=== PATIENT | female | born 1955 | race Caucasian/White ===

== ENCOUNTER 2024-12-03 11:18 | Outpatient (CLI) | payer MEDICARE, SELFPAY | END 2024-12-03 11:19 | disposition home or self-care (01) | LOC: MICIMG 11:22 | PROVIDERS: PCP Internal Medicine; Visit Provider Internal Medicine | DX: M25.572 Pain in left ankle and joints of left foot (principal) | CPT/HCPCS: 73610 ==

== ENCOUNTER 2025-02-10 | Day surgery (SDC) | payer MEDICARE, SELFPAY ==
[2025-01-28 14:59] VITALS: BMI 28.0
--- OUTSIDE RECORDS SUMMARY | 2025-02-10 00:02 | XMS_ITS | Data Portability ---
Author Organization [place] [facility], Main Office Address [address] [place] [address] Assessment Encounter Date Assessment Date Assessment LastModified by Organization Details LastModified Time 04/03/2023 04/03/2023 Continue current therapy blood work ordered follow-up in 4 months [email or web address] Not available 04/15/2023 17:15:37 10/09/2023 10/09/2023 Will continue current therapy stay up-to-date on immunizations especially with regards to COVID RSV and flu. Blood work ordered follow-up with me in 6 months Not available 10/09/2023 13:58:39 Plan of Treatment Reminders Order Date Submit Date Provider Last Modified By Organization Details Last Modified Time Details Appointments Follow Up 15 2024 10:30A Singh Tan DPM Not available Not available Not available Lab CMP, serum or plasma 2023 024 [facility] (Lab), [address] [place], [address], 10/09/2023 16:59:46 lipid panel, serum 2023 024 [facility] (Lab), [address] [place], [address], 10/09/2023 16:59:50 CBC w/ auto diff 2023 024 [facility] (Lab), [address] [place], [address], 10/09/2023 16:13:42 glycohemo globin, total, blood 2023 024 [facility] (Lab), [address] [place], [address], 10/09/2023 20:22:25 Referral None recorded. Procedures None recorded. Surgeries None recorded. Imaging None recorded. Medication Orders amlodipin e 5 mg tablet 2023 024 [id number] [facility], [address], [address], [id number], 10/09/2023 13:10:59 atorvasta tin 10 mg tablet 2023 024 [facility], [facility] [address], [facility] [address], [place], [id number], 10/09/2023 13:10:59 glimepiri de 2 mg tablet 2023 024 [place] [id number] [facility], [address], [facility] [address], [place], [id number], 10/09/2023 13:10:59 Patient TargetsNo targets recorded. Patient InstructionsNo instructions recorded. Reason for Referral None Reported. Results Created Date Observation Date Name Description Value Unit Range Abnormal Flag Note LastModifiedBy Organization Detail LastModifiedTime 10/04/1910/04/2022 LIPID PANEL cholesterol 200 mg/dL 140-19 9 high [facility] SID[facility]AR[facility] NSUS RECOM MENDA TION FOR RODOLFO STERO L: ADULT CHILD LOW RISK: <200 <170 BORDE RLINE : <200- 239 ----- HIGH RISK: >240 >200 Not Available [facility] (Lab) [address] [place], [address], 10/04/2022 15:43:26 10/04/1910/04/2022 LIPID PANEL triglyceride s 173 mg/dL 0-150 high NIH SID[facility]AR[facility] NSUS REPOR T RECOM MENDA TION FOR TRIGL YCERI BRISEIDA: ADULT CHILD LOW RISK: <150 ----- BODER LINE: 150-1 99 ----- HIGH RISK: >200 ----- Not Available [facility] (Lab) [address] [place], [address], 10/04/2022 15:43:26 10/04/19 23 10/04/2022 LIPID PANEL HDL cholesterol 42 mg/dL 40- Not Available [facility] (Lab) [address] [place], [address], 10/04/2022 15:43:26 10/04/19 23 10/04/2022 LIPID PANEL LDL cholesterol, calculated 123 mg/dL 0-130 NIH S[facility] NSUS REPOR T RECOM MENDA TIONS FOR LDL: ADULT CHILD LOW RISK <130 <110 (OPTI MAL LDL) <100 ----- LUCILADE RLINE : 130-1 59 ----- HIGH RISK: >160 >130 A TRIGL YCERI DE RESUL T >400 INVAL IDATE S THE CALCU LATIO N FOR LDL FRACT IONAT ION - THE LDL RESUL T WILL NOT BE REPOR LOLA. Not Available [facility] (Lab) [address] [place], [address], 10/04/2022 15:43:26 10/04/1910/04/2022 COMPR EHENS YOVANY METAB OLIC PANEL sodium 140 mmol/ L 137-14 5 Not Available [facility] (Lab) [address] [place], [address], 10/04/2022 15:43:22 10/04/19 23 10/04/2022 COMPR EHENS YOVANY METAB OLIC PANEL potassium 4.2 mmol/ L 3.5-5. 1 Not Available [facility] (Lab) [address] [place], [address], 10/04/2022 15:43:22 10/04/19 23 10/04/2022 COMPR EHENS YOVANY METAB OLIC PANEL chloride 102 mmol/ L 98-107 Not Available [facility] (Lab) [address] [place], [address], 10/04/2022 15:43:22 10/04/19 23 10/04/2022 COMPR EHENS YOVANY METAB OLIC PANEL carbon dioxide 26 mmol/ L 22-30 Not Available [facility] (Lab) [address] [place], [address], 10/04/2022 15:43:22 10/04/19 23 10/04/2022 COMPR EHENS YOVANY METAB OLIC PANEL anion gap 16.2 mmol/ L 14-22 Not Available [facility] (Lab) [address] [place], [address], 10/04/2022 15:43:22 10/04/19 23 10/04/2022 COMPR EHENS YOVANY METAB OLIC PANEL glucose 90 mg/dL 70-99 Not Available [facility] (Lab) [address] [place], [address], 10/04/2022 15:43:22 10/04/19 23 10/04/2022 COMPR EHENS YOVANY METAB OLIC PANEL BUN 13 mg/dL 8-19 Not Available [facility] (Lab) [address] [place], [address], 10/04/2022 15:43:22 10/04/19 23 10/04/2022 COMPR EHENS YOVANY METAB OLIC PANEL creatinine 0.89 mg/dL 0.66-1 .25 Not Available [facility] (Lab) [address] [place], [address], 10/04/2022 15:43:22 10/04/19 23 10/04/2022 COMPR EHENS YOVANY METAB OLIC PANEL GFR >60 Refer ence Range : [place] ge GFR Healt hy Adult : >60 mL/mi n/1.7 3 m2 Chron ic Kidne y Disea se: 15-60 mL/mi n/1.7 3 m2 Kidne y Failu re: <15/m L/min /1.73 m2 www.n iddk. nih.g ov The MDRD study equat ion has not been valid ated in child wai <18 years of age; pregn ant women ; the elder ly >85 years of age; or in some racia l or ethni c subgr oups, such as [facility] nics. Outsi de the valid ated rafiq eters , estim ated GFR is less accur ate, requi ring clini rogelio judgm ent on a case- by-ca se basis . Clini rogelio inter preta tion for other races and ages must be made by the clini calixto. The MDRD study equat ion has not been valid ated for the evalu ation of serum creat inine relat ed to nutri rajesh l statu s or medic ation usage . For perso ns <18 years of age, a pedia tric GFR calcu lator is avail able on the [facility] websi te: https :[email or web address] [email or web address] rg/pr ofess ional s/kdo qi/gf r_cal culat or Not Available [facility] (Lab) [address] [place], [address], 10/04/2022 15:43:22 10/04/19 23 10/04/2022 COMPR EHENS YOVANY METAB OLIC PANEL alkaline phosphatase 85 U/L 38-126 Not Available [facility] (Lab) [address] [place], [address], 10/04/2022 15:43:22 10/04/19 23 10/04/2022 COMPR EHENS YOVANY METAB OLIC PANEL alanine aminotransfe rase 30 U/L 0-35 Not Available [facility] (Lab) [address] [place], [address], 10/04/2022 15:43:22 10/04/19 23 10/04/2022 COMPR EHENS YOVANY METAB OLIC PANEL aspartate aminotransfe rase 28 U/L 15-37 Not Available [facility] (Lab) [address] [place], [address], 10/04/2022 15:43:22 10/04/19 23 10/04/2022 COMPR EHENS YOVANY METAB OLIC PANEL bilirubin, total 0.90 mg/dL 0.20-1 .30 Not Available [facility] (Lab) [address] [place], [address], 10/04/2022 15:43:22 10/04/19 23 10/04/2022 COMPR EHENS YOVANY METAB OLIC PANEL calcium 9.3 mg/dL 8.4-10 .2 Not Available [facility] (Lab) [address] [place], [address], 10/04/2022 15:43:22 10/04/19 23 10/04/2022 COMPR EHENS YOVANY METAB OLIC PANEL total protein 7.7 g/dL 6.3-8. 2 Not Available [facility] (Lab) [address] [place], [address], 10/04/2022 15:43:22 10/04/19 23 10/04/2022 COMPR EHENS YOVANY METAB OLIC PANEL albumin 4.6 g/dL 3.0-4. 4 high Not Available [facility] (Lab) [address] [place], [address], 10/04/2022 15:43:22 10/04/19 23 10/04/2022 COMPR EHENS YOVANY METAB OLIC PANEL globulin 3.1 g/dL 2.6-4. 2 Not Available [facility] (Lab) [address] [place], [address], 10/04/2022 15:43:22 10/04/19 23 10/04/2022 COMPR EHENS YOVANY METAB OLIC PANEL A/G ratio 1.5 ratio 1.0-2. 0 Not Available [facility] (Lab) [address] [place], [address], 10/04/2022 15:43:22 10/04/19 23 10/04/2022 CBC/C OMPLE TE BLD COUNT W/DIF F white blood cells 9.1 x10'3 /uL 4.2-10 .8 Not Available [facility] (Lab) [address] [place], [address], 10/04/2022 14:51:34 10/04/19 23 10/04/2022 CBC/C OMPLE TE BLD COUNT W/DIF F red blood cells 4.81 x10'6 /uL 3.80-5 .20 Not Available [facility] (Lab) [address] [place], [address], 10/04/2022 14:51:34 10/04/1910/04/2022 CBC/C OMPLE TE BLD COUNT W/DIF F hemoglobin 14.0 g/dL 12.0-1 5.6 Not Available [facility] (Lab) [address] [place], [address], 10/04/2022 14:51:34 10/04/1910/04/2022 CBC/C OMPLE TE BLD COUNT W/DIF F hematocrit 42.9 % 35.7-4 5.7 Not Available [facility] (Lab) [address] [place], [address], 10/04/2022 14:51:34 10/04/1910/04/2022 CBC/C OMPLE TE BLD COUNT W/DIF F mean red cell volume 89.2 fL 82.0-9 9.0 Not Available [facility] (Lab) [address] [place], [address], 10/04/2022 14:51:34 10/04/1910/04/2022 CBC/C OMPLE TE BLD COUNT W/DIF F mean red cell hemoglobin 29.1 pg 27.0-3 3.0 Not Available [facility] (Lab) [address] [place], [address], 10/04/2022 14:51:34 01/03/20 23 10/04/2022 CBC/C OMPLE TE BLD COUNT W/DIF F mean RBC HGB concentratio n 32.6 g/dL 31.0-3 6.0 Not Available [facility] (Lab) [address] [place], [address], 10/04/2022 14:51:34 10/04/19 23 10/04/2022 CBC/C OMPLE TE BLD COUNT W/DIF F red cell distribution width 12.6 % 11.8-1 5.5 Not Available [facility] (Lab) [address] [place], [address], 10/04/2022 14:51:34 10/04/19 23 10/04/2022 CBC/C OMPLE TE BLD COUNT W/DIF F platelets 378 x10'3 /uL 150-40 0 Not Available [facility] (Lab) [address] [place], [address], 10/04/2022 14:51:34 10/04/19 23 10/04/2022 CBC/C OMPLE TE BLD COUNT W/DIF F mean platelet volume 8.7 fL 9.0-12 .4 low Not Available [facility] (Lab) [address] [place], [address], 10/04/2022 14:51:34 10/04/1910/04/2022 CBC/C OMPLE TE BLD COUNT W/DIF F neutrophils 74.0 % 39.0-7 2.0 high Not Available [facility] (Lab) [address] [place], [address], 10/04/2022 14:51:34 10/04/19 23 10/04/2022 CBC/C OMPLE TE BLD COUNT W/DIF F lymphocytes 18.1 % 16.0-4 7.0 Not Available [facility] (Lab) [address] [place], [address], 10/04/2022 14:51:34 10/04/19 23 10/04/2022 CBC/C OMPLE TE BLD COUNT W/DIF F monocytes 5.0 % 5.0-12 .0 Not Available [facility] (Lab) [address] [place], [address], 10/04/2022 14:51:34 10/04/19 23 10/04/2022 CBC/C OMPLE TE BLD COUNT W/DIF F eosinophils 2.2 % 1.0-7. 0 Not Available [facility] (Lab) [address] [place], [address], 10/04/2022 14:51:34 10/04/19 23 10/04/2022 CBC/C OMPLE TE BLD COUNT W/DIF F basophils 0.4 % 0.0-2. 0 Not Available [facility] (Lab) [address] [place], [address], 10/04/2022 14:51:34 10/04/19 23 10/04/2022 CBC/C OMPLE TE BLD COUNT W/DIF F immature granulocytes 0.3 % 0.00-0 .50 Not Available [facility] (Lab) [address] [place], [address], 10/04/2022 14:51:34 10/04/19 23 10/04/2022 CBC/C OMPLE TE BLD COUNT W/DIF F neutrophils, absolute count 6.72 x10'3 /uL 1.5-8. 0 Not Available [facility] (Lab) [address] [place], [address], 10/04/2022 14:51:34 10/04/19 23 10/04/2022 CBC/C OMPLE TE BLD COUNT W/DIF F lymphocytes, absolute count 1.64 x10'3 /uL 1.07-3 .43 Not Available [facility] (Lab) [address] [place], [address], 10/04/2022 14:51:34 10/04/19 23 10/04/2022 CBC/C OMPLE TE BLD COUNT W/DIF F monocytes, absolute count 0.45 x10'3 /uL 0.29-0 .99 Not Available [facility] (Lab) [address] [place], [address], 10/04/2022 14:51:34 10/04/19 23 10/04/2022 CBC/C OMPLE TE BLD COUNT W/DIF F eosinophils, absolute count 0.20 x10'3 /uL 0.02-0 .53 Not Available [facility] (Lab) [address] [place], [address], 10/04/2022 14:51:34 10/04/19 23 10/04/2022 CBC/C OMPLE TE BLD COUNT W/DIF F basophils, absolute count 0.04 x10'3 /uL 0.01-0 .08 Not Available [facility] (Lab) [address] [place], [address], 10/04/2022 14:51:34 10/04/19 23 10/04/2022 CBC/C OMPLE TE BLD COUNT W/DIF F immature granulocytes ,absolute 0.03 x10'3 /uL 0.00-0 .05 Not Available [facility] (Lab) [address] [place], [address], 10/04/2022 14:51:34 10/04/19 23 10/04/2022 CBC/C OMPLE TE BLD COUNT W/DIF F nucleated red blood cells 0.0 % -0 Not Available [facility] (Lab) [address] [place], [address], 10/04/2022 14:51:34 10/04/19 23 10/04/2022 CBC/C OMPLE TE BLD COUNT W/DIF F NRBC# 0.00 x10'3 /uL Not Available [facility] (Lab) [address] [place], [address], 10/04/2022 14:51:34 04/03/20 23 04/03/2023 CBC/C OMPLE TE BLD COUNT W/DIF F white blood cells 5.1 x10'3 /uL 4.2-10 .8 Not Available [facility] (Lab) [address] [place], [address], 04/03/2023 13:47:51 04/03/20 23 04/03/2023 CBC/C OMPLE TE BLD COUNT W/DIF F red blood cells 4.81 x10'6 /uL 3.80-5 .20 Not Available [facility] (Lab) [address] [place], [address], 04/03/2023 13:47:51 04/03/20 23 04/03/2023 CBC/C OMPLE TE BLD COUNT W/DIF F hemoglobin 13.7 g/dL 12.0-1 5.6 Not Available [facility] (Lab) [address] [place], [address], 04/03/2023 13:47:51 04/03/20 23 04/03/2023 CBC/C OMPLE TE BLD COUNT W/DIF F hematocrit 42.7 % 35.7-4 5.7 Not Available [facility] (Lab) [address] [place], [address], 04/03/2023 13:47:51 04/03/20 23 04/03/2023 CBC/C OMPLE TE BLD COUNT W/DIF F mean red cell volume 88.8 fL 82.0-9 9.0 Not Available [facility] (Lab) [address] [place], [address], 04/03/2023 13:47:51 04/03/20 23 04/03/2023 CBC/C OMPLE TE BLD COUNT W/DIF F mean red cell hemoglobin 28.5 pg 27.0-3 3.0 Not Available [facility] (Lab) [address] [place], [address], 04/03/2023 13:47:51 04/03/20 23 04/03/2023 CBC/C OMPLE TE BLD COUNT W/DIF F mean RBC HGB concentratio n 32.1 g/dL 31.0-3 6.0 Not Available [facility] (Lab) [address] [place], [address], 04/03/2023 13:47:51 04/03/20 23 04/03/2023 CBC/C OMPLE TE BLD COUNT W/DIF F red cell distribution width 12.9 % 11.8-1 5.5 Not Available [facility] (Lab) [address] [place], [address], 04/03/2023 13:47:51 04/03/20 23 04/03/2023 CBC/C OMPLE TE BLD COUNT W/DIF F platelets 317 x10'3 /uL 150-40 0 Not Available [facility] (Lab) [address] [place], [address], 04/03/2023 13:47:51 04/03/20 23 04/03/2023 CBC/C OMPLE TE BLD COUNT W/DIF F mean platelet volume 9.1 fL 9.0-12 .4 Not Available [facility] (Lab) [address] [place], [address], 04/03/2023 13:47:51 04/03/20 23 04/03/2023 CBC/C OMPLE TE BLD COUNT W/DIF F neutrophils 47.7 % 39.0-7 2.0 Not Available [facility] (Lab) [address] [place], [address], 04/03/2023 13:47:51 0704/03/2023 CBC/C OMPLE TE BLD COUNT W/DIF F lymphocytes 39.0 % 16.0-4 7.0 Not Available [facility] (Lab) [address] [place], [address], 04/03/2023 13:47:51 04/03/20 23 04/03/2023 CBC/C OMPLE TE BLD COUNT W/DIF F monocytes 7.9 % 5.0-12 .0 Not Available [facility] (Lab) [address] [place], [address], 04/03/2023 13:47:51 04/03/2004/03/2023 CBC/C OMPLE TE BLD COUNT W/DIF F eosinophils 4.2 % 1.0-7. 0 Not Available [facility] (Lab) [address] [place], [address], 04/03/2023 13:47:51 04/03/2004/03/2023 CBC/C OMPLE TE BLD COUNT W/DIF F basophils 1.0 % 0.0-2. 0 Not Available [facility] (Lab) [address] [place], [address], 04/03/2023 13:47:51 04/03/2004/03/2023 CBC/C OMPLE TE BLD COUNT W/DIF F immature granulocytes 0.2 % 0.00-0 .50 Not Available [facility] (Lab) [address] [place], [address], 04/03/2023 13:47:51 04/03/2004/03/2023 CBC/C OMPLE TE BLD COUNT W/DIF F neutrophils, absolute count 2.41 x10'3 /uL 1.5-8. 0 Not Available [facility] (Lab) [address] [place], [address], 04/03/2023 13:47:51 04/03/20 23 04/03/2023 CBC/C OMPLE TE BLD COUNT W/DIF F lymphocytes, absolute count 1.97 x10'3 /uL 1.07-3 .43 Not Available [facility] (Lab) [address] [place], [address], 04/03/2023 13:47:51 04/03/20 23 04/03/2023 CBC/C OMPLE TE BLD COUNT W/DIF F monocytes, absolute count 0.40 x10'3 /uL 0.29-0 .99 Not Available [facility] (Lab) [address] [place], [address], 04/03/2023 13:47:51 04/03/20 23 04/03/2023 CBC/C OMPLE TE BLD COUNT W/DIF F eosinophils, absolute count 0.21 x10'3 /uL 0.02-0 .53 Not Available [facility] (Lab) [address] [place], [address], 04/03/2023 13:47:51 04/03/20 23 04/03/2023 CBC/C OMPLE TE BLD COUNT W/DIF F basophils, absolute count 0.05 x10'3 /uL 0.01-0 .08 Not Available [facility] (Lab) [address] [place], [address], 04/03/2023 13:47:51 04/03/2004/03/2023 CBC/C OMPLE TE BLD COUNT W/DIF F immature granulocytes ,absolute 0.01 x10'3 /uL 0.00-0 .05 Not Available [facility] (Lab) [address] [place], [address], 04/03/2023 13:47:51 04/03/20 23 04/03/2023 CBC/C OMPLE TE BLD COUNT W/DIF F nucleated red blood cells 0.0 % -0 Not Available [facility] (Lab) [address] [place], [address], 04/03/2023 13:47:51 04/03/20 23 04/03/2023 CBC/C OMPLE TE BLD COUNT W/DIF F NRBC# 0.00 x10'3 /uL Not Available [facility] (Lab) [address] [place], [address], 04/03/2023 13:47:51 04/03/20 23 04/03/2023 COMPR EHENS YOVANY METAB OLIC PANEL sodium 141 mmol/ L 137-14 5 Not Available [facility] (Lab) [address] [place], [address], 04/03/2023 14:48:38 04/03/20 23 04/03/2023 COMPR EHENS YOVANY METAB OLIC PANEL potassium 4.3 mmol/ L 3.5-5. 1 Not Available [facility] (Lab) [address] [place], [address], 04/03/2023 14:48:38 04/03/20 23 04/03/2023 COMPR EHENS YOVANY METAB OLIC PANEL chloride 104 mmol/ L 98-107 Not Available [facility] (Lab) [address] [place], [address], 04/03/2023 14:48:38 04/03/20 23 04/03/2023 COMPR EHENS YOVANY METAB OLIC PANEL carbon dioxide 28 mmol/ L 22-30 Not Available [facility] (Lab) [address] [place], [address], 04/03/2023 14:48:38 04/03/20 23 04/03/2023 COMPR EHENS YOVANY METAB OLIC PANEL anion gap 13.3 mmol/ L 14-22 low Not Available [facility] (Lab) [address] [place], [address], 04/03/2023 14:48:38 07/0304/03/2023 COMPR EHENS YOVANY METAB OLIC PANEL glucose 86 mg/dL 70-99 Not Available [facility] (Lab) [address] [place], [address], 04/03/2023 14:48:38 04/03/20 23 04/03/2023 COMPR EHENS YOVANY METAB OLIC PANEL BUN 12 mg/dL 8-19 Not Available [facility] (Lab) [address] [place], [address], 04/03/2023 14:48:38 04/03/20 23 04/03/2023 COMPR EHENS YOVANY METAB OLIC PANEL creatinine 0.92 mg/dL 0.66-1 .25 Not Available [facility] (Lab) [address] [place], [address], 04/03/2023 14:48:38 04/03/20 23 04/03/2023 COMPR EHENS YOVANY METAB OLIC PANEL GFR >60 Refer ence Range : [place] GFR Healt hy Adult : >60 mL/mi n/1.7 3 m2 Chron ic Kidne y Disea se: 15-60 mL/mi n/1.7 3 m2 Kidne y Failu re: <15/m L/min /1.73 m2 www.n iddk. nih.g ov The MDRD study equat ion has not been valid ated in child wai <18 years of age; pregn ant women ; the elder ly >85 years of age; or in some racia l or ethni c subgr oups, such as [facility] nics. Outsi de the valid ated rafiq eters , estim ated GFR is less accur ate, requi ring clini rogelio judgm ent on a case- by-ca se basis . Clini rogelio inter preta tion for other races and ages must be made by the clini calixto. The MDRD study equat ion has not been valid ated for the evalu ation of serum creat inine relat ed to nutri rajesh l statu s or medic ation usage . For perso ns <18 years of age, a pedia tric GFR calcu lator is avail able on the [facility] websi te: https :[email or web address] [email or web address] rg/pr ofess ional s/kdo qi/gf r_cal culat or Not Available [facility] (Lab) [address] [place], [address], 04/03/2023 14:48:38 04/03/20 23 04/03/2023 COMPR EHENS YOVANY METAB OLIC PANEL alkaline phosphatase 68 U/L 38-126 Not Available [facility] (Lab) [address] [place], [address], 04/03/2023 14:48:38 04/03/20 23 04/03/2023 COMPR EHENS YOVANY METAB OLIC PANEL alanine aminotransfe rase 24 U/L 0-35 Not Available [facility] (Lab) [address] [place], [address], 04/03/2023 14:48:38 04/03/20 23 04/03/2023 COMPR EHENS YOVANY METAB OLIC PANEL aspartate aminotransfe rase 28 U/L 15-37 Not Available [facility] (Lab) [address] [place], [address], 04/03/2023 14:48:38 04/03/20 23 04/03/2023 COMPR EHENS YOVANY METAB OLIC PANEL bilirubin, total 0.70 mg/dL 0.20-1 .30 Not Available [facility] (Lab) [address] [place], [address], 04/03/2023 14:48:38 04/03/20 23 04/03/2023 COMPR EHENS YOVANY METAB OLIC PANEL calcium 10.0 mg/dL 8.4-10 .2 Not Available [facility] (Lab) [address] [place], [address], 04/03/2023 14:48:38 04/03/20 23 04/03/2023 COMPR EHENS YOVANY METAB OLIC PANEL total protein 7.7 g/dL 6.3-8. 2 Not Available [facility] (Lab) [address] [place], [address], 04/03/2023 14:48:38 04/03/20 23 04/03/2023 COMPR EHENS YOVANY METAB OLIC PANEL albumin 4.4 g/dL 3.0-4. 4 Not Available [facility] (Lab) [address] [place], [address], 04/03/2023 14:48:38 04/03/20 23 04/03/2023 COMPR EHENS YOVANY METAB OLIC PANEL globulin 3.3 g/dL 2.6-4. 2 Not Available [facility] (Lab) [address] [place], [address], 04/03/2023 14:48:38 04/03/20 23 04/03/2023 COMPR EHENS YOVANY METAB OLIC PANEL A/G ratio 1.3 ratio 1.0-2. 0 Not Available [facility] (Lab) [address] [place], [address], 04/03/2023 14:48:38 04/03/20 23 04/03/2023 LIPID PANEL cholesterol 145 mg/dL 140-19 9 [facility] NSUS RECOM MENDA TION FOR RODOLFO STERO L: ADULT CHILD LOW RISK: <200 <170 BORDE RLINE : <200- 239 ----- HIGH RISK: >240 >200 Not Available [facility] (Lab) [address] [place], [address], 04/03/2023 14:48:42 04/03/2004/03/2023 LIPID PANEL triglyceride s 136 mg/dL 0-150 [facility] NSUS REPOR T RECOM MENDA TION FOR TRIGL YCERI BRISEIDA: ADULT CHILD LOW RISK: <150 ----- BODER LINE: 150-1 99 ----- HIGH RISK: >200 ----- Not Available [facility] (Lab) [address] [place], [address], 04/03/2023 14:48:42 04/03/2004/03/2023 LIPID PANEL HDL cholesterol 39 mg/dL 40- low Not Available [facility] (Lab) [address] [place], [address], 04/03/2023 14:48:42 04/03/2004/03/2023 LIPID PANEL LDL cholesterol, calculated 79 mg/dL 0-130 [facility] NSUS REPOR T RECOM MENDA TIONS FOR LDL: ADULT CHILD LOW RISK <130 <110 (OPTI MAL LDL) <100 ----- BORDE RLINE : 130-1 59 ----- HIGH RISK: >160 >130 A TRIGL YCERI DE RESUL T >400 INVAL IDATE S THE CALCU LATIO N FOR LDL FRACT IONAT ION - THE LDL RESUL T WILL NOT BE REPOR LOLA. Not Available [facility] (Lab) [address] [place], [address], 04/03/2023 14:48:42 04/03/2004/03/2023 HEMOG LOBIN A1C HA1C 5.6 % 4.0-6. 0 Diabe sebas Scree bishop Crite matt: <5.7% Consi stent with absen ce of diabe sebas 5.7-6 .4% Consi stent with incre ased risk for diabe sebas (pred iabet es) >OR=6 .5% Consi stent with diabe sebas REFER ENCE: Diabe sebas Care 2016, 39([place] ppl.1 ):s13 -s22 Not Available [facility] (Lab) [address] [place], [address], 04/03/2023 16:26:51 10/09/19 24 10/09/2023 CBC/C OMPLE TE BLD COUNT W/DIF F white blood cells 5.8 x10'3 /uL 4.2-10 .8 Not Available [facility] (Lab) [address] [place], [address], 10/09/2023 16:13:42 10/09/19 24 10/09/2023 CBC/C OMPLE TE BLD COUNT W/DIF F red blood cells 4.98 x10'6 /uL 3.80-5 .20 Not Available [facility] (Lab) [address] [place], [address], 10/09/2023 16:13:42 10/09/19 24 10/09/2023 CBC/C OMPLE TE BLD COUNT W/DIF F hemoglobin 14.6 g/dL 12.0-1 5.6 Not Available [facility] (Lab) [address] [place], [address], 10/09/2023 16:13:42 10/09/19 24 10/09/2023 CBC/C OMPLE TE BLD COUNT W/DIF F hematocrit 45.5 % 35.7-4 5.7 Not Available [facility] (Lab) [address] [place], [address], 10/09/2023 16:13:42 10/09/19 24 10/09/2023 CBC/C OMPLE TE BLD COUNT W/DIF F mean red cell volume 91.4 fL 82.0-9 9.0 Not Available [facility] (Lab) [address] [place], [address], 10/09/2023 16:13:42 10/09/19 24 10/09/2023 CBC/C OMPLE TE BLD COUNT W/DIF F mean red cell hemoglobin 29.3 pg 27.0-3 3.0 Not Available [facility] (Lab) [address] [place], [address], 10/09/2023 16:13:42 10/09/19 24 10/09/2023 CBC/C OMPLE TE BLD COUNT W/DIF F mean RBC HGB concentratio n 32.1 g/dL 31.0-3 6.0 Not Available [facility] (Lab) [address] [place], [address], 10/09/2023 16:13:42 10/09/19 24 10/09/2023 CBC/C OMPLE TE BLD COUNT W/DIF F red cell distribution width 12.7 % 11.8-1 5.5 Not Available [facility] (Lab) [address] [place], [address], 10/09/2023 16:13:42 10/09/19 24 10/09/2023 CBC/C OMPLE TE BLD COUNT W/DIF F platelets 332 x10'3 /uL 150-40 0 Not Available [facility] (Lab) [address] [place], [address], 10/09/2023 16:13:42 10/09/19 24 10/09/2023 CBC/C OMPLE TE BLD COUNT W/DIF F mean platelet volume 9.2 fL 9.0-12 .4 Not Available [facility] (Lab) [address] [place], [address], 10/09/2023 16:13:42 10/09/19 24 10/09/2023 CBC/C OMPLE TE BLD COUNT W/DIF F neutrophils 57.2 % 39.0-7 2.0 Not Available [facility] (Lab) [address] [place], [address], 10/09/2023 16:13:42 10/09/19 24 10/09/2023 CBC/C OMPLE TE BLD COUNT W/DIF F lymphocytes 30.6 % 16.0-4 7.0 Not Available [facility] (Lab) [address] [place], [address], 10/09/2023 16:13:42 10/09/19 24 10/09/2023 CBC/C OMPLE TE BLD COUNT W/DIF F monocytes 8.1 % 5.0-12 .0 Not Available [facility] (Lab) [address] [place], [address], 10/09/2023 16:13:42 10/09/19 24 10/09/2023 CBC/C OMPLE TE BLD COUNT W/DIF F eosinophils 2.9 % 1.0-7. 0 Not Available [facility] (Lab) [address] [place], [address], 10/09/2023 16:13:42 10/09/19 24 10/09/2023 CBC/C OMPLE TE BLD COUNT W/DIF F basophils 0.9 % 0.0-2. 0 Not Available [facility] (Lab) [address] [place], [address], 10/09/2023 16:13:42 10/09/19 24 10/09/2023 CBC/C OMPLE TE BLD COUNT W/DIF F immature granulocytes 0.3 % 0.00-0 .50 Not Available [facility] (Lab) [address] [place], [address], 10/09/2023 16:13:42 10/09/19 24 10/09/2023 CBC/C OMPLE TE BLD COUNT W/DIF F neutrophils, absolute count 3.30 x10'3 /uL 1.5-8. 0 Not Available [facility] (Lab) [address] [place], [address], 10/09/2023 16:13:42 10/09/19 24 10/09/2023 CBC/C OMPLE TE BLD COUNT W/DIF F lymphocytes, absolute count 1.77 x10'3 /uL 1.07-3 .43 Not Available [facility] (Lab) [address] [place], [address], 10/09/2023 16:13:42 10/09/19 24 10/09/2023 CBC/C OMPLE TE BLD COUNT W/DIF F monocytes, absolute count 0.47 x10'3 /uL 0.29-0 .99 Not Available [facility] (Lab) [address] [place], [address], 10/09/2023 16:13:42 10/09/19 24 10/09/2023 CBC/C OMPLE TE BLD COUNT W/DIF F eosinophils, absolute count 0.17 x10'3 /uL 0.02-0 .53 Not Available [facility] (Lab) [address] [place], [address], 10/09/2023 16:13:42 10/09/19 24 10/09/2023 CBC/C OMPLE TE BLD COUNT W/DIF F basophils, absolute count 0.05 x10'3 /uL 0.01-0 .08 Not Available [facility] (Lab) [address] [place], [address], 10/09/2023 16:13:42 10/09/19 24 10/09/2023 CBC/C OMPLE TE BLD COUNT W/DIF F immature granulocytes ,absolute 0.02 x10'3 /uL 0.00-0 .05 Not Available [facility] (Lab) [address] [place], [address], 10/09/2023 16:13:42 10/09/19 24 10/09/2023 CBC/C OMPLE TE BLD COUNT W/DIF F nucleated red blood cells 0.0 % -0 Not Available [facility] (Lab) [address] [place], [address], 10/09/2023 16:13:42 10/09/19 24 10/09/2023 CBC/C OMPLE TE BLD COUNT W/DIF F NRBC# 0.00 x10'3 /uL Not Available [facility] (Lab) [address] [place], [address], 10/09/2023 16:13:42 10/09/19 24 10/09/2023 COMPR EHENS YOVANY METAB OLIC PANEL sodium 141 mmol/ L 137-14 5 Not Available [facility] (Lab) [address] [place], [address], 10/09/2023 16:59:46 10/09/19 24 10/09/2023 COMPR EHENS YOVANY METAB OLIC PANEL potassium 4.3 mmol/ L 3.5-5. 1 Not Available [facility] (Lab) [address] [place], [address], 10/09/2023 16:59:46 10/09/19 24 10/09/2023 COMPR EHENS YOVANY METAB OLIC PANEL chloride 105 mmol/ L 98-107 Not Available [facility] (Lab) [address] [place], [address], 10/09/2023 16:59:46 10/09/19 24 10/09/2023 COMPR EHENS YOVANY METAB OLIC PANEL carbon dioxide 26 mmol/ L 22-30 Not Available [facility] (Lab) [address] [place], [address], 10/09/2023 16:59:46 10/09/19 24 10/09/2023 COMPR EHENS YOVANY METAB OLIC PANEL anion gap 14.3 mmol/ L 14-22 Not Available [facility] (Lab) [address] [place], [address], 10/09/2023 16:59:46 10/09/19 24 10/09/2023 COMPR EHENS YOVANY METAB OLIC PANEL glucose 77 mg/dL 70-99 Not Available [facility] (Lab) [address] [place], [address], 10/09/2023 16:59:46 10/09/19 24 10/09/2023 COMPR EHENS YOVANY METAB OLIC PANEL BUN 17 mg/dL 8-19 Not Available [facility] (Lab) [address] [place], [address], 10/09/2023 16:59:46 10/09/19 24 10/09/2023 COMPR EHENS YOVANY METAB OLIC PANEL creatinine 0.89 mg/dL 0.66-1 .25 Not Available [facility] (Lab) [address] [place], [address], 10/09/2023 16:59:46 10/09/19 24 10/09/2023 COMPR EHENS YOVANY METAB OLIC PANEL GFR >60 Refer ence Range : [place] ge GFR Healt hy Adult : >60 mL/mi n/1.7 3 m2 Chron ic Kidne y Disea se: 15-60 mL/mi n/1.7 3 m2 Kidne y Failu re: <15/m L/min /1.73 m2 www.n iddk. nih.g ov The MDRD study equat ion has not been valid ated in child wai <18 years of age; pregn ant women ; the elder ly >85 years of age; or in some racia l or ethni c subgr oups, such as [facility] nics. Outsi de the valid ated rafiq eters , estim ated GFR is less accur ate, requi ring clini rogelio judgm ent on a case- by-ca se basis . Clini rogelio inter preta tion for other races and ages must be made by the clini calixto. The MDRD study equat ion has not been valid ated for the evalu ation of serum creat inine relat ed to nutri rajesh l statu s or medic ation usage . For perso ns <18 years of age, a pedia tric GFR calcu lator is avail able on the F websi te: https ://kristie tai.radha talbot.o pedro/pr tonyess ional s/kdo qi/gf r_cal culat or Not Available [facility] (Lab) [address] [place], [address], 10/09/2023 16:59:46 10/09/19 24 10/09/2023 COMPR EHENS YOVANY METAB OLIC PANEL alkaline phosphatase 78 U/L 38-126 Not Available [facility] (Lab) [address] [place], [address], 10/09/2023 16:59:46 10/09/19 24 10/09/2023 COMPR EHENS YOVANY METAB OLIC PANEL alanine aminotransfe rase 26 U/L 0-35 Not Available [facility] (Lab) [address] [place], [address], 10/09/2023 16:59:46 10/09/19 24 10/09/2023 COMPR EHENS YOVANY METAB OLIC PANEL aspartate aminotransfe rase 31 U/L 15-37 Not Available [facility] (Lab) [address] [place], [address], 10/09/2023 16:59:46 10/09/19 24 10/09/2023 COMPR EHENS YOVANY METAB OLIC PANEL bilirubin, total 0.50 mg/dL 0.20-1 .30 Not Available [facility] (Lab) [address] [place], [address], 10/09/2023 16:59:46 10/09/19 24 10/09/2023 COMPR EHENS YOVANY METAB OLIC PANEL calcium 10.3 mg/dL 8.4-10 .2 high Not Available [facility] (Lab) [address] [place], [address], 10/09/2023 16:59:46 10/09/19 24 10/09/2023 COMPR EHENS YOVANY METAB OLIC PANEL total protein 7.8 g/dL 6.3-8. 2 Not Available [facility] (Lab) [address] [place], [address], 10/09/2023 16:59:46 10/09/19 24 10/09/2023 COMPR EHENS YOVANY METAB OLIC PANEL albumin 4.6 g/dL 3.0-4. 4 high Not Available [facility] (Lab) [address] [place], [address], 10/09/2023 16:59:46 10/09/19 24 10/09/2023 COMPR EHENS YOVANY METAB OLIC PANEL globulin 3.2 g/dL 2.6-4. 2 Not Available [facility] (Lab) [address] [place], [address], 10/09/2023 16:59:46 10/09/19 24 10/09/2023 COMPR EHENS YOVANY METAB OLIC PANEL A/G ratio 1.4 ratio 1.0-2. 0 Not Available [facility] (Lab) [address] [place], [address], 10/09/2023 16:59:46 10/09/19 24 10/09/2023 LIPID PANEL cholesterol 162 mg/dL 140-19 9 NIH SIDDHARTH NSUS RECOM MENDA TION FOR RODOLFO STERO L: ADULT CHILD LOW RISK: <200 <170 BORDE RLINE : <200- 239 ----- HIGH RISK: >240 >200 Not Available [facility] (Lab) [address] [place], [address], 10/09/2023 16:59:50 10/09/19 24 10/09/2023 LIPID PANEL triglyceride s 125 mg/dL 0-150 NIH SIDDHARTH NSUS REPOR T RECOM MENDA TION FOR TRIGL YCERI BRISEIDA: ADULT CHILD LOW RISK: <150 ----- BODER LINE: 150-1 99 ----- HIGH RISK: >200 ----- Not Available [facility] (Lab) [address] [place], [address], 10/09/2023 16:59:50 10/09/19 24 10/09/2023 LIPID PANEL HDL cholesterol 41 mg/dL 40- Not Available [facility] (Lab) [address] [place], [address], 10/09/2023 16:59:50 10/09/19 24 10/09/2023 LIPID PANEL LDL cholesterol, calculated 96 mg/dL 0-130 NIH SID[facility]AR[facility] NSUS REPOR T RECOM MENDA TIONS FOR LDL: ADULT CHILD LOW RISK <130 <110 (OPTI MAL LDL) <100 ----- BORDE RLINE : 130-1 59 ----- HIGH RISK: >160 >130 A TRIGL YCERI DE RESUL T >400 INVAL IDATE S THE CALCU LATIO N FOR LDL FRACT IONAT ION - THE LDL RESUL T WILL NOT BE REPOR LOLA. Not Available [facility] (Lab) [address] [place], [address], 10/09/2023 16:59:50 10/09/19 24 10/09/2023 HEMOG LOBIN A1C HA1C 5.8 % 4.0-6. 0 Diabe sebas Karely alas Crite matt: <5.7% Consi stent with absen ce of diabe sebas 5.7-6 .4% Consi stent with incre ased risk for diabe sebas (pred iabet es) >OR=6 .5% Consi stent with diabe sebas REFER ENCE: Diabe sebas Care 2016, 39([place] ppl.1 ):s13 -s22 Not Available [facility] (Lab) [address] [place], [address], 10/09/2023 20:22:25 06/30/20 23 06/30/2023 MAMMO , scree ibshop, bilat eral [facility] [address] [place] [address] Patien t Name: VARSHA HIGGINBOTHAM Access ion #: [id number] Sex: F : 1954 8 Dictat ed By: Carli Luis Attend ing Physic mike: TAMARA LEES Orderi Physic mike: TAMARA LEES Exam Date: 2022 09:29 AM Exam Name: MG SCRN BREAST MONALISA BILAT Admitt ing Diagno sis(es ): SCREEN ING MAMMOG JANIS WITH TOMOSY NTHESI S: REASON FOR EXAM: SCREEN ING MAMMOG JANIS COMPAR PHILLY: 06/07/20 22; 06/04/20 21 TECHNI QUE: Bilate ral CC and MLO views obtain ed. Images were obtain ed using a Digita l Tomosy nthesi s Unit. Standa rd 2D and 3D Tomosy nthesi s images were review ed. FINDIN GS: BREAST COMPOS ITION: The bilate ral breast s are hetero geneou sly dense, which may obscur e small masses . In the right breast , no asymme trical parenc hymal patter n, darlene ectura l distor tion, pleomo rphic microc alcifi cation s or masses . In the left breast , no asymme trical parenc hymal patter n, darlene ectura l distor tion, pleomo rphic microc alcifi cation s or masses . IMPRES JUAN JOSE: No findin gs of malign gosia. Recomm end annual mammog janis. BIRADS : 2 - Benign Electr onical ly Signed by: Carli Luis at 2022 11:19: 53 AM Page 1 [facility] (Imaging) [address] [place], [address], 09/28/2023 11:40:04 Result Notes None recorded. Problems Name Problem SNOMED Code Status Onset Date Resolution Date Notes Provider Name and Address Organization Details Recorded Time Renewal of prescripti on Active 2021 Not Available [facility] 4 05:45:50 Pain in lower limb 44696987 Active Not Available [facility] 4 05:45:50 Body mass index 25-29 - overweight 114240147 Active Not Available [facility] 4 05:45:50 Steatotic liver disease 521372146 Active Not Available [facility] 4 05:45:50 Pruritus of vagina 21526466 Active Not Available [facility] 4 05:45:50 Blood in urine 94858319 Active Not Available [facility] 4 05:45:50 Hypertensi ve disorder 50544416 Completed Not Available [facility] 3 08:09:06 Cavernous hemangioma 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 Active Not Available [facility] 4 05:45:50 Blister 850080021 Active Not Available [facility] 4 05:45:50 Mass of chest wall 670724440 Active Not Available [facility] 4 05:45:50 Hyperlipid emia 06578549 Active Not Available [facility] 4 05:45:50 Essential hypertensi on 95754389 Active 2016 Not Available [facility] 4 05:45:50 Allergic rhinitis 03853840 Active Not Available [facility] 4 05:45:50 Diabetes mellitus 36568097 Active Not Available [facility] 4 05:45:50 Lipoma 96498427 Active Not Available [facility] 4 05:45:50 Hemangioma of intracrani al structure 70803595 Active 2021 Not Available [facility] 4 05:45:50 Skin lesion 85033565 Active 2021 Not Available [facility] 4 05:45:50 COVID-19 922638049 Active 2022 Not Available [facility] 4 05:45:50 Problem Notes None recorded. Procedures Surgical History Date Name Laterality Status Provider Name and Address Organization Details Recorded Time 12/10/19 25 Nail Debridement completed Venkatesh Osborne DPM [address], [place], [address], [employer] [facility] [employer] [facility] 12/10/2024 08:38:52 09/12/20 24 Nail Debridement completed Venkatesh Osborne DPM [address], [place], [address], [employer] [facility] [employer] [facility] 09/17/2024 08:48:10 01/28/20 15 Date of Last Colonoscopy completed Not Available [facility] 11/30/2022 08:06:19 01/28/20 15 Colonoscopy completed Not Available [facility] 12/01/19 08:06:21 01/20/20 14 Most Recent Bone Density completed Not Available [facility] 11/30/2022 08:06:19 other completed Not Available [facility] 10/2022 08:06:21 Tonsillectomy completed Not Available [facility] 11/30/2022 08:06:21 Foot Surgery [facility] 11/30/2022 08:06:21 Imaging Results Imaging Date Name Status LastModified by Organiz ation Details LastModified Time 06/30/2023 MAMMO, screening, bilateral completed [facility] [address] [place], [address], 09/28/2023 11:40:04 Procedure Notes None recorded. Medical Equipment None Reported. Allergies Allergen ID Allergen Name Allergen Category Reaction Reaction Severity Criticality Documentation Date Start Date Code Code System Note Provider Name and Address Organization Details Recorded Time Tylenol medicatio n Not available Not available Not available 11/30/202269840 3 RxNorm has fatty liver Not Available [facility] 3 08:14:22 Non-stero idal anti-infl ammatory agent (product) medicatio n Not available Not available Not available 11/30/2022 42773 005 SNOMED Was told she cant have this becau se she has a probl em with her brain stem so was told not to take them. Not Available [facility] 3 08:14:22 lisinopri l medicatio n facial swelling Not available Not available 11/30/2022 04415 RxNorm Not Available [facility] 3 08:14:22 Medications Name Sig Start Date Stop Date Status Note LastModified by Organization Details LastModified Time atorvastatin 10 mg tablet TAKE 1 TABLET BY MOUTH DAILY active Not Available Not Available No t Available fluconazole 150 mg tablet Take 1 tablet every day by oral route. 01/11 completed Not Available Not Available Not Available lovastatin 40 mg tablet active Not Available Not Available Not Available meclizine 12.5 mg tablet Take 1 tablet 3 times a day by oral route as needed. 09/03 completed Not Available Not Available Not Available amlodipine 5 mg tablet TAKE 1 TABLET BY MOUTH DAILY active Not Available Not Available No t Available glimepiride 2 mg tablet TAKE 1 TABLET BY MOUTH DAILY active Not Available Not Available No t Available glimepiride 1 mg tablet active Not Available Not Available Not Available amitriptylin e 25 mg tablet Take 1 tablet every day by oral route for 90 days. 01/28 completed Not Available Not Available Not Available tobramycin 0.3 % eye drops active Not Available Not Available Not Available albuterol sulfate HFA 90 mcg/actuatio n aerosol inhaler INHALE 2 PUFFS BY MOUTH EVERY 4 HOURS active Not Available Not Available No t Available loratadine 10 mg tablet Take 1 tablet every day by oral route. 07/26 completed Not Available Not Available Not Available diazepam 5 mg tablet Take 0.5 tablets every day by oral route as directed . 12/14 completed Not Available Not Available Not Available ezetimibe 10 mg tablet TAKE 1 TABLET DAILY 01/31 completed Not Available Not Available Not Available loratadine active Not Available Not Av ailable Not Available multivitamin daily 2013 active Not Available Not Available Not Avai lable Calcium 600 with Vitamin D3 daily 2013 active Not Available Not Available Not Avai lable PreserVision AREDS 2017 active Not Available Not Available Not Avai lable Zostavax (PF) 19,400 unit/0.65 mL subcutaneous suspension active Not Available Not Available N ot Available peg 3350-electro lytes 236 gram-22.74 gram-6.74 gram-5.86 gram solution active Not Available Not Available Not Available Allergy Relief (cetirizine) 04/03 completed Not Available Not Available Not Available One-Per-Day [place]-3 684 mg-1,200 mg capsule,andrew yed release Take 1 capsule every day by oral route. 01/11 completed Not Available Not Available Not Available Fish Oil 360 mg-1,200 mg capsule Take 1 capsule every day by oral route. 2013 active Not Available Not Available Not Avai lable melatonin 10 mg tablet Take by oral route. 07/26 completed Not Available Not Available Not Available PreserVision AREDS-2 daily 2013 active Not Available Not Available Not Avai lable Fluzone High-Dose Quad 2020-21 (PF) 240 mcg/0.7 mL IM syringe 12/10 completed Not Available Not Available Not Available Paxlovid 300 mg (150 mg x 2)-100 mg tablets in a dose pack TAKE 3 TABLETS BY MOUTH TWICE A DAY FOR 5 DAYS 04/03 completed Not Available Not Available Not Available Vitals Date Recorded Body mass index (BMI) Body height Pain severity - 0-10 verbal numeric rating [Score] - Reported Heart rate Body temperature Body weight Systolic blood pressure Diastolic blood pressure Provider Name and Address Organization Details Last Updated DateTime 3 27.4 kg/m2 167.64 cm 0 74 /min 96.8 [degF] 79522.7 g 118 mm[Hg] 70 mm[Hg] Not Available [facility] 3 08:06:33 Date Recorded Body height Body mass index (BMI) Body weight Body temperature Heart rate Systolic blood pressure Diastolic blood pressure Provider Name and Address Organization Details Last Updated DateTime 3 167.64 cm 26.6 kg/m2 87820.7 4 g 97.9 [degF] 60 /min 126 mm[Hg] 72 mm[Hg] Jennifer Morris Harris [employer] [facility] [employer] [facility] 3 12:25:33 Date Recorded Body height Body mass index (BMI) Body weight Body temperature Heart rate Systolic blood pressure Diastolic blood pressure Provider Name and Address Organization Details Last Updated DateTime 4 167.64 cm 27.3 kg/m2 92330.1 1 g 97.9 [degF] 62 /min 130 mm[Hg] 82 mm[Hg] Jennifer Morris Harris [email or web address] [facility] 4 11:35:26 Date Recorded Body height Body mass index (BMI) Body weight Oxygen saturation Oxygen saturation in Arterial blood by Pulse oximetry Heart rate Body temperature Provider Name and Address Organization Details Last Updated DateTime 4 167.64 cm 27.3 kg/m2 76285.1 1 g 98 % 98 % 83 /min 98.4 [degF] Meir Victor Harris [employer] [facility] [employer] [facility] 4 11:20:12 Date Recorded Body height Body mass index (BMI) Body weight Oxygen saturation Oxygen saturation in Arterial blood by Pulse oximetry Body temperature Heart rate Provider Name and Address Organization Details Last Updated DateTime 5 167.64 cm 27.3 kg/m2 30516.1 1 g 96 % 96 % 98.6 [degF] 77 /min NEELIMA De La Cruz [place] - [place] [employer] [facility] 5 10:54:02 Social History Question Answer Notes LastModified by Organizat ion Details LastModified Time Tobacco Smoking Status Never Smoker Not Available [email or web address] 11/30/2022 08:05:57 Do You Have An Advance Directive? Yes Patient To Bring Copy For Chart. [id number] Information not available 11/30/2022 Are You Blind Or Do You Have Difficulty Seeing? 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 Occasional [id number] Information not available 11/30/2022 How Much Tobacco Do You Chew? None [id number] Information not available 11/30/2022 In The 14 Days Before Symptom Onset, Have You Had Close Contact With A Laboratory-confir med COVID-19 While That Case Was Ill? No [id number] Information not available 11/30/2022 In The 14 Days Before Symptom Onset, Have You Had Close Contact With A Person Who Is Under Investigation For COVID-19 While That Person Was Ill? No [id number] Information not available 11/30/2022 Are You Deaf Or Do You Have Serious Difficulty Hearing? No [id number] Information not available 11/30/2022 What Type Of Diet Are You Following? REGULAR [id number] Information not available 11/30/2022 Which Illicit Or Recreational Drugs Have You Used? None [id number] Information not available 11/30/2022 What Is The Highest Grade Or Level Of School You Have Completed Or The Highest Degree You Have Received? [id number] [id number].13256 [id number] Information not available 11/30/2022 Have There Been Any Changes To Your Family Or Social Situation? No [id number].[id number] Information not available 11/30/2022 What Is The Fluoride Status Of Your Home? Unknown [id number].[id number] Information not available 11/30/2022 Are There Any Guns Present In Your Home? No [id number] Information not available 11/30/2022 Do You Use Insect Repellent Routinely? No [id number].[id number] Information not available 11/30/2022 Where Do You Live? Apartment MIGRATION.[id number] Information not available 11/30/2022 Do You Have A Medical Power Of Commercial Title Examiner? Yes MIGRATION.85430 [id number] Information not available 11/30/2022 What Was The Date Of Your Most Recent Tobacco Screening? 12/09/2024 [email or web address] Information not available 12/09/2024 Do You Have Any Pets? No [id number].[id number] Information not available 11/30/2022 What Is Your Relationship Status? Single [id number].[id number] Information not available 11/30/2022 Do You Use Your Seat Belt Or Car Seat Routinely? Yes MIGRATION.92115 63361 Information not available 11/30/2022 Do You Have Smoke And Carbon Monoxide Detectors In Your Home? Yes MIGRATION.04896 05469 Information not available 11/30/2022 Are You Passively Exposed To Smoke? No MIGRATION.69812 88356 Information not available 11/30/2022 Are There Any Smokers In Your House? No MIGRATION.12653 32381 Information not available 11/30/2022 How Much Tobacco Do You Smoke? No MIGRATION.97130 73779 Information not available 11/30/2022 What Types Of Sporting Activities Do You Participate In? None MIGRATION.81521 21483 Information not available 11/30/2022 Do You Use Sunscreen Routinely? Yes MIGRATION.18525 99039 Information not available 11/30/2022 Has Tobacco Cessation Counseling Been Provided? No Not Needed-nev er Smoked MIGRATION.37700 35410 Information not available 11/30/2022 How Many Years Have You Smoked Tobacco? 0 MIGRATION.19055 88569 Information not available 11/30/2022 Have You Recently Traveled Abroad? No MIGRATION.88779 75650 Information not available 11/30/2022 Do You Have Any Dietary Restrictions? No MIGRATION.94948 36398 Information not available 11/30/2022 Sex: Female Functional Status Question Answer Note LastModified by Organizat ion Details LastModified Time Do you or have you ever used smokeless tobacco? Never used smokeless tobacco MIGRATION.06878 96122 Information not available 11/30/2022 Do you have difficulty walking or climbing stairs? Yes balance issues, uses a cane MIGRATION.83152 72168 Information not available 11/30/2022 Do you have transportation difficulties? No MIGRATION.22921 19898 Information not available 11/30/2022 Are you able to care for yourself? Yes MIGRATION.65714 56489 Information not available 11/30/2022 Do you have difficulty dressing or bathing? No MIGRATION.43052 70566 Information not available 11/30/2022 Do you or have you ever used e-cigarettes or vape? Never used electronic cigarettes MIGRATION.53219 56285 Information not available 11/30/2022 What is your exercise level? Moderate walks one mile daily and water aerobics MIGRATION.86727 39780 Information not available 11/30/2022 Do you use any illicit or recreational drugs? No MIGRATION.26326 06335 Information not available 11/30/2022 Do you or have you ever used any other forms of tobacco or nicotine? No MIGRATION.47496 98090 Information not available 11/30/2022 What is your level of alcohol consumption? None MIGRATION.96214 95262 Information not available 11/30/2022 Are you able to walk? YESASSIST uses cane MIGRATION.63182 69425 Information not available 11/30/2022 Do you have difficulty doing errands alone? Yes doesn't drive MIGRATION.11411 97499 Information not available 11/30/2022 What is your occupation? retired MIGRATION.82042 06586 Information not available 11/30/2022 Mental Status Question Answer Note LastModified by Organizat ion Details LastModified Time Do you feel stressed (tense, restless, nervous, or anxious, or unable to sleep at night)? CK58688-7 MIGRATION.14377506 26 Information not available 11/30/2022 Do you have difficulty concentrating, remembering or making decisions? No MIGRATION.33532718 26 Information not available 11/30/2022 Family History Relationship Description Onset Age of this Age Resolved Age Notes LastModified by Organization Details LastModified Time Mother Asthma MIGRATION.888 [id number] Not available 11/30/2022 08:06:21 Mother Hypertensive disorder MIGRATION.184 4880641 Not available 11/30/2022 08:06:21 Mother Hypercholest erolemia MIGRATION.132 0762007 Not available 11/30/2022 08:06:21 Father Diabetes mellitus MIGRATION.612 9118419 Not available 11/30/2022 08:06:21 Father Malignant tumor of pharynx MIGRATION.581 [id number] Not available 11/30/2022 08:06:21 Sister Malignant neoplasm of skin not melano ma MIGRATION.874 8591891 Not available 11/30/2022 08:06:21 Sister Malignant tumor of thyroid gland MIGRATION.256 6261594 Not available 11/30/2022 08:06:21 Brother Diabetes mellitus MIGRATION.947 [id number] Not available 11/30/2022 08:06:21 Brother Hypertensive disorder MIGRATION.426 [id number] Not available 11/30/2022 08:06:21 Brother Hypercholest erolemia MIGRATION.288 3760830 Not available 11/30/2022 08:06:22 Medical History Condition Response CHEST XRAY N KIDNEY STONES N CARPAL TUNNEL SYNDROME N MRSA N HISTORY OF DRUG ABUSE N COPD N RADIATION / CHEMOTHERAPY N BLOOD DISEASES N SURGERY N MUMPS N BOWEL PROBLEMS N FAILED BACK SYNDROME N STROKE/TIA Y THYROID DISEASE N LYMPHEDEMA N ULCERS N OTHER MODALITIES N CERVICALGIA N TB SKIN TEST N MYOCARDIAL INFARCTION N OBESITY N PARAPELGIA N URINARY/BLADDER/KIDNEY PROBLEMS N Increased Urination N CORONARY ARTERY DISEASE (CAD) N INPATIENT PSYCH CARE N MENIERE'S DISEASE N ADDICTION CONCERNS N CAROTID STENOSIS N ENDOMETRIOSIS N Impotence N PARATHYROID DISEASE N PERIPHERAL VASCULAR DISEASE N MUSCLE,JOINT OR BONE PROBLEMS N DVT N STOMACH ULCERS N GASTROINTESTINAL BLEEDING N BLOOD CLOTS N Difficulty Urinating N PAST HISTORY OF VEHICULAR ACCIDENT N ASTHMA Y USE OF NSAIDS N ARTERIAL INSUFFICIENCY N CHF N GI PROBLEMS N Low Testosterone N VISION/EYE PROBLEMS N MALE HYPOGONADISM N TOURETTE'S N ANXIETY DISORDER N CHRONIC EAR INFECTIONS N BIPOLAR DISORDER N CONDUCT DISORDER N OSTEOARTHRITIS N TUBERCULOSIS N DIVERTICULITIS N SLEEP APNEA N ALLERGIES/HAYFEVER N HEART ARRHYTHMIA N PROSTATE N INSOMNIA N PAST MEDICATION HISTORY N EYE PROBLEMS N EDEMA N HYPOTHYROIDISM N CONSTIPATION N CAROTID BLOCKAGE N MOOD DISORDER N BACK / NECK PROBLEMS N MIGRAINES N BREAST PROBLEMS N POLYCYSTIC OVARIES N FIBROMYALGIA N OSTEOPOROSIS N PERIPHERAL NEUROPATHY N APPENDICITIS N VON WILLIBRAND'S DISEASE N SEASONAL ALLERGIES N HEARTBURN / REFLUX N PLEURISY N AFIB N ADD/ADHD N Bronchoscopy N AUTISM SPECTRUM DISORDER (ASD) N SLEEP DISORDER N RETINOPATHY N HEADACHES/MIGRAINES N SLEEP STUDY N VASCULAR DISEASE N Blood Disorder N HEART DISEASE/HEART PROBLEMS N DEVELOPMENTAL OR BEHAVIORAL DISORDERS N CLAUDICATION N MULTIPLE SCLEROSIS N PULMONARY FUNCTION TEST N ANESTHESIA COMPLICATIONS N ATRIAL FIBRILLATION N Gall Stones N PULMONARY EMBOLISM N AUTOIMMUNE DISEASE N NERVE DISEASE N BLINDNESS N RHEUMATIC FEVER N BLADDER PROBLEMS N Enlarged Prostate N OTHER # 1 N POLIO N LUNG DISEASE/DISORDER N Other # 2 N EAR OR HEARING PROBLEMS N PAST SPINAL SURGERY N SCHIZOPHRENIA N FEMALE PROBLEMS / INFECTIONS N DEPRESSION (INCLUDING POST ) N CHEST CT N RENAL INSUFFICIENCY N BENIGN PROSTATIC HYPERPLASIA N MEASLES N HYPOTENSION N GERD/NAUSEA N EXCESSIVE PERSPIRATION N ANEURYSM N USE OF BLOOD THINNERS N SKIN PROBLEMS N EMPHYSEMA N SHORTNESS OF BREATH N GASTROINTESTINAL DISORDER N PTSD N CATARACTS N CONCUSSION OR SPINAL TRAUMA N ERECTILE DYSFUNCTION N VARICOSITIES N NEUROPATHY N INFERTILITY N AIDS/HIV N FRACTURES N CHEMOTHERAPY / RADIATION N LIVER DISEASE N HYPERTENSION Y Deficiency N Metal allergy N BLOOD TRANSFUSION N ANEMIA/BLOOD DISORDER N BRONCHITIS N GLAUCOMA N FOOT PROBLEM N HEART VALVE DISORDERS N CHICKENPOX N BACK INJECTIONS N INFECTIOUS DISEASE N ESRD N PAST INTERVENTIONAL PAIN MANAGEMENT HIST ORY N RHEUMATOID ARTHRITIS N HIGH CHOLESTEROL / HYPERLIPIDEMIA Y HYPERTHYROIDISM N UTI N PVD N EATING DISORDER N NEUROLOGICAL PROBLEMS N CHRONIC PAIN SYNDROME N ATHEROSCLEROSIS N BURSITIS N HERNIATED DISC N DIALYSIS N ECZEMA N HISTORY WITH COMPLICATIONS WITH ANESTHES IA ? N PSYCHOSIS N ARTHRITIS N RESPIRATORY PROBLEMS N PAST HISTORY OF FALL N DIABETES, TYPE Y BAD TEETH N ENT N POST LAMINECTOMY SYNDROME N HEPATITIS / LIVER DISEASE Y PULMONARY DISEASE N GOUT N ALZHEIMER'S DISEASE N PAIN N Brain Problems Y FATIGUE N HERPES N DEMENTIA N SEIZURES/EPILEPSY N PACEMAKER N DIZZINESS N HEAD TRAUMA OR INJURY N KIDNEY DISEASE N SCARLET FEVER N MENTAL DISORDER/ILLNESS N NEUROPSYCHOLOGICAL N CANCER: SPECIFY N CARDIAC ARRHYTHMIA N PNEUMONIA N Gynecological History Statement/Question Response Date of Last Mammogram 06/07/2022 Date of Last Colonoscopy 01/27/2015 Most Recent Bone Density 01/19/2014 Sexually Active? N Menses Monthly N Date of Last Pap LMP Unknown Obstetrics History GPAL:G 0 P 0 0 0 0 Immunizations Vaccine Type Date Status Note Provider Nam e and Address Organization Details Recorded Time influenza, [id number] 5 completed Not Available [facility] 10/14/2023 05:45:50 COVID-19, mRNA, LNP-S, PF, 100 mcg/0.5mL dose or 50 mcg/0.25mL dose 1 completed Not Available [facility] 10/14/2023 05:45:50 COVID-19, mRNA, LNP-S, PF, 100 mcg/0.5mL dose or 50 mcg/0.25mL dose 1 completed Not Available [facility] 10/14/2023 05:45:50 influenza, [id number] 4 completed Not Available [facility] 10/14/2023 05:45:50 Influenza, high-dose, quadrivalent, PF 1 completed Not Available [facility] 10/14/2023 05:45:50 Influenza, high-dose, trivalent, PF 0 completed Not Available [facility] 10/14/2023 05:45:50 Influenza, high-dose, trivalent, PF 8 completed Not Available [facility] 10/14/2023 05:45:50 Influenza, split virus, quadrivalent, preservative 7 completed Not Available [facility] 10/14/2023 05:45:50 COVID-19, mRNA, LNP-S, PF, 100 mcg/0.5mL dose or 50 mcg/0.25mL dose 2 completed Not Available [facility] 10/14/2023 05:45:50 COVID-19, mRNA, LNP-S, PF, 100 mcg/0.5mL dose or 50 mcg/0.25mL dose 1 completed Not Available [facility] 10/14/2023 05:45:50 zoster live 4 completed Not Available [facility] 10/14/2023 05:45:50 tetanus toxoid, adsorbed 9 completed Not Available [facility] 10/14/2023 05:45:50 Pneumococcal conjugate PCV 13 5 completed Not Available [facility] 10/14/2023 05:45:50 pneumococcal polysaccharide PPV23 4 completed Not Available [facility] 10/14/2023 05:45:50 Past Encounters Encounter ID Performer Location Encounter Start Date Encounter Closed Date Diagnosis/Indication Diagnosis SNOMED-CT Code Diagnosis ICD10 Code Diagnosis Note [id number] Beau Lees MD [facility] [address] [facility], [facility] [address] [place] [address] 12/14/2020 00:00:00 01/02/2021 12:29:53 [id number] Beau Lees MD [facility] [address] [address] 1 05/31/2021 00:00:00 05/31/2021 22:02:14 [id number] Beau Lees MD [facility] [address] [place], [place] [address]., [address] [address] 09/13/2021 00:00:00 10/02/2021 22:09:36 [id number] Beau Lees MD [facility] [address] [place] [address]., [place] [address] 03/21/2022 00:00:00 03/21/2022 21:35:09 [id number] Beau Lees MD [facility] [address] [place] [address]., [place] [address] 1 10/04/2022 00:00:00 10/04/2022 23:01:00 [id number] Beau Lees MD [facility] [address] [facility] [address] [address] 04/03/2023 10:56:37 04/03/2023 12:35:02 Essential hypertension 52018852 I10 Hemangioma of intracranial structure 54054773 D18.02 Diabetes mellitus 432627 09 E11.9 Hyperlipidemia 68037397 E78.5 [id number] Beau Lees MD [facility] [address] [place], [place] [address]., [address] [address] 10/09/2023 11:06:32 10/09/2023 12:48:52 Diabetes mellitus 89739246 E11.9 Essential hypertension 91513394 I10 Renewal of prescription 430670800 Z76.0 Hemangioma of intracranial structure 23390987 D18.02 Hyperlipidemia 35878113 E78.5 [id number] Venkatesh Osborne DPM [facility] [address] [place] [address] 09/12/2024 10:47:25 09/28/2024 04:07:12 [id number] Venkatesh Osborne, JASON [facility] [address], [facility] [address] [place] [address] 12/09/2024 10:22:05 12/10/2024 13:53:03 Health Concerns Section Related Observation LastModified by Organization Detai ls LastModified Time None Recorded Concern Status LastModified by Organization Details LastModified Time None Recorded Advance Directives Directive Y: Patient to bring copy for chart. Payers Encounter Date Sequence Insurance Name Policy Number Policy Rabago Covered Member ID Rabago Member ID Guarantor Name 04/03/2023 1 [facility] (MEDICARE REPLACEMENT/A DVANTAGE - HMO) [id number] Varsha K Affolter [id number] Varsha K Affolter 10/09/2023 1 [facility] (MEDICARE REPLACEMENT/A DVANTAGE - HMO) [id number] Varsha K Affolter [id number] Varsha K Affolter 09/12/2024 1 [facility] (MEDICARE REPLACEMENT/A DVANTAGE - HMO) [id number] Varsha K Affolter [id number] Varsha K Affolter 12/09/2024 1 [facility] (MEDICARE REPLACEMENT/A DVANTAGE - HMO) [id number] Varsha K Affolter [id number] Varsha K Affolter Notes Date Note Type Note Provider Name and Address Organization Details Recorded Time 04/03/2023 text/html diabetes no polyphagia polydipsia. Hypertension no chest pain or shortness of breath and hyperlipidemia tries to watch red meat. 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 Beau Lees MD [address], [facility], [place], [address], [employer] 04/15/2023 17:15:54 10/09/2023 text/html diabetes no polyphagia polydipsia. Hypertension no chest pain or shortness of breath and hyperlipidemia tries to watch red meat. 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 Beau Lees MD [address], [facility], [place], [address], [employer] 10/09/2023 13:58:56 09/12/2024 text/html Pt RTC for routi ne NIDDM evaluation and preventative care. Gait evaluation and education. Venkatesh Osborne DPM [address], [facility] [address], [place], [address], [facility] [employer] 09/17/2024 08:48:40 12/09/2024 text/html Pt RTC for routi ne nail care rendered this date uneventfully Venkatesh Osborne DPM [address], [facility] [address], [place], [address], [facility] [employer] 12/10/2024 08:38:57 OBGyn Episode No OBEpisode recorded.
--- OUTSIDE RECORDS SUMMARY | 2025-02-10 00:02 | XMS_ITS | Continuity of Care Document ---
Author Organization [facility] Address [address] [place] [address] Phone Care Team Providers Care Cook Helper Juice Name Role Phone Lyon OD, Owen Unavailable Unavailable Procedures Procedure Date Eye Exam & Treatment Eye Exam & Treatment No Script Refraction Progressive Lens, Hi Index Frames [facility] Medical Office/outpatient Visit, Est BF Hi Index Sphcyl +/-4.25 - +/-7d, . Frames [facility] Medical Eye Exam & Treatment Refraction Advance Directives Directive Yes / No Effective Date File Name No Information Encounters Encounter Description Practice Location Reason(s) For Visit Diagnoses Date Provider Providers Copied on Encounter [facility], [address] [place] [address] [address], [place], [place], [id number], tel:[phone] [facility] No Information 7-201 0 Lyon OD Owen. [address] [facility] , [address], [place], [address], [place]. tel:[phone] [facility], [address] [place] [address] [address], [place], [place], [id number], [place] tel:[phone] [facility] [place] No Information 3-200 9 Krishnasamy Boni. [address] [facility] [place] [address], [place], [address], [place]. tel:[phone] [facility], [address], [place], [place], [id number], [place] tel:[phone] [facility] [place] No Information Aug-2 3-200 9 [facility]. [address] [facility], [address], [place], [place], [id number], [place]. tel:[phone] Referring Provider: Boni quiñones, [address] [place], [place] [address]ate [place] [address], [place], [address]. tel:[phone] sulting Provider: Ministerio Garcia, [address] [place], [place] [address]ate [facility], [place], [address]. tel:[phone] Office/outpat ient Visit, [facility], [address], [place], [place], [id number], [place] tel:[phone] [facility] No Information Mar- 7-200 8 Carisa Pltaa. Replaced by [facility] [place] [address], [place], [address], [place]. tel:[phone] [facility], [address], [place], [place], [id number], [place] tel:[phone] [facility] No Information 2-200 7 [facility]. [address] [facility], [address], [place], [place], [id number], [place]. tel:[phone] Referring Provider: Charlie Iglesias, [address] [facility] [address], [place], [address] . tel:[phone] sulting Provider: Meghann Stein, [address] [place], [address]. tel:[phone] [facility], [address], [place], [place], [id number], [place] tel:[phone] [facility] No Information 200 7 Swati Guerra. [address] [facility], [address], [place], [place], [id number], [place]. tel:[phone] Family History Family Member Type Diagnosis Age At Onset No Information Payers Payer name Insurance type Covered republican ID Authoriza tion(s) Medicare [place] CI [id number] BCBS [place] Commercial BL [id number] Social History Type Description Quantity Date Captured Comments Sex Female Smoking Status No Information Chief Complaint And Reason For Visit No Information Reason For Referral Reason For Referral No Information History Of Present Illness Encounter Date Complaint History Of Prese nt Illness No Information Functional Status Date Functional Assessmen t No Information Instructions Date Instruction Additional Infor mation No Information Assessments Type Assessment Date No Information Patient Care Teams Name Effective Dates (start - stop) Status Members No Information
--- OUTSIDE RECORDS SUMMARY | 2025-02-10 00:03 | XMS_ITS | Data Portability ---
Author Organization [facility] Address [address] [place] [address] Care Team Providers Care Raisin Washer Name Role Phone ERMIAS LEES Primary Care Provider Assessment Encounter Date Assessment Date Assessment LastModified by Organization Details LastModified Time 02/13/2024 02/13/2024 She is up-to-date on diabetic eye exams and mammogram 6 she is due for a Cologuard probably next year we will get old records of validate that we will continue with current therapy she will follow-up with me in 4 Not available 03/09/2024 16:09:14 08/13/2024 08/13/2024 diagnosis discussed mammogram podiatry for foot exam last A1c was 6.1 colonoscopy and colon cancer screening we are trying to obtain the report we will get Prevnar 20 today return to clinic 4 months' got flu shot at [facility] follow up 4 months healthy lifestyle care instructions Not available 08/17/2024 21:34:16 12/03/2024 12/03/2024 continue current therapy. Cologuard. X-ray of the foot. Advised to stay up-to-date on screenings and immunizations CBC CMP lipid A1c microalbumin testing return to clinic 4 months' [email or web address] Not available 12/07/2024 15:54:24 Plan of Treatment Reminders Order Date Submit Date Provider Last Modified By Organization Details Last Modified Time Details Appointments ANY 15 2024 09:30A M Ermias Lees MD Not available Not available Not available Lab albumin/c reatinine , mass ratio, urine 202404 025 [facility], [address], [address], [place], [address], 12/04/2024 06:22:01 HbA1c (hemoglob in A1c), blood 2024 025 [facility], [address], [address], [place], [address], 12/04/2024 06:22:05 noninvasi ve colorecta l cancer DNA + occult blood screening , QL, stool 2024 025 [facility]), [address], [address], [place], [address], 12/21/2024 10:58:42 CBC w/ auto diff 2024 025 [facility], [address], [address], [place], [address], 12/04/2024 06:22:06 CMP, serum or plasma 2024 025 [facility], [address], [address], [place], [address], 12/04/2024 06:22:04 lipid panel, serum 2024 025 [facility], [address], [address], [place], [address], 12/04/2024 06:22:02 HbA1c (hemoglob in A1c), blood 2023 024 [facility], [address], [address], [place], [address], 02/14/2024 08:24:58 CBC w/ auto diff 2023 024 [facility], [address], [address], [place], [address], 02/14/2024 08:24:59 lipid panel, serum 2023 024 [facility], [address], [address], [place], [address], 02/14/2024 08:24:55 CMP, serum or plasma 2023 024 [facility], [address], [address], [place], [address], 02/14/2024 08:24:57 Referral podiatris t referral 2023 024 nolan [facility], [address] [facility], [address], [place], [address], 11/05/2024 12:54:48 Procedures None recorded. Surgeries None recorded. Imaging XR, ankle 2024 025 [facility], [address], [address], [place], [address], 12/04/2024 11:48:53 MAMMO, screening , digital, bilateral 2023 024 [facility], [address], [address], [place], [address], 12/12/2024 12:02:53 Medication Orders None recorded. Patient TargetsNo targets recorded. 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 Referral for Type 2 diabetes mellitus Referring Physician: Ermias Lees, Internal Medicine, Encounter Date: 08/13/2024 Results Created Date Observation Date Name Description Value Unit Range Abnormal Flag Note LastModifiedBy Organization Detail LastModifiedTime 02/13/2002/1302/14/2024 LIPID PANEL cholesterol, total 137 mg/dL 100-19 9 Not Available [facility]) [address] [place], [address], 02/14/2024 08:24:55 02/13/20 24 02/14/2024 LIPID PANEL triglyceride s 158 mg/dL 0-149 above high normal Not Available [facility] ([facility]) [address] [place], [address], 02/14/2024 08:24:55 02/13/20 24 02/14/2024 LIPID PANEL HDL cholesterol 41 mg/dL >39 Not Available [facility] [address] [place], [address], 02/14/2024 08:24:55 02/13/20 24 02/14/2024 LIPID PANEL VLDL cholesterol rogelio 27 mg/dL 5-40 Not Available [facility] [address] [place], [address], 02/14/2024 08:24:55 02/13/20 24 02/14/2024 LIPID PANEL LDL chol calc ([facility]) 69 mg/dL 0-99 Not Available [facility] [address] [place], [address], 02/14/2024 08:24:55 02/13/20 24 02/14/2024 COMP. METAB OLIC PANEL (14) glucose 84 mg/dL 70-99 Not Available [facility] ([facility] [address] [place], [address], 02/14/2024 08:24:57 02/13/20 24 02/14/2024 COMP. METAB OLIC PANEL (14) BUN 10 mg/dL 8-27 Not Available [facility] ([facility] [address] [place], [address], 02/14/2024 08:24:57 02/13/20 24 02/14/2024 COMP. METAB OLIC PANEL (14) creatinine 0.97 mg/dL 0.57-1 .00 Not Available [facility] ([facility] [address] [place], [address], 02/14/2024 08:24:57 02/13/20 24 02/14/2024 COMP. METAB OLIC PANEL (14) eGFR 63 mL/mi n/1.7 3 >59 Not Available [facility] ([facility]) [address] [facility] [place], [address], 02/14/2024 08:24:57 02/13/20 24 02/14/2024 COMP. METAB OLIC PANEL (14) BUN/creatini ne ratio 10 12-28 below low normal Not Available [facility] ([facility]) [address] [place], [address], 02/14/2024 08:24:57 02/13/20 24 02/14/2024 COMP. METAB OLIC PANEL (14) sodium 143 mmol/ L 134-14 4 Not Available [facility] [address] [place], [address], 02/14/2024 08:24:57 02/13/20 24 02/14/2024 COMP. METAB OLIC PANEL (14) potassium 4.9 mmol/ L 3.5-5. 2 Not Available [facility] ([facility] [address] [place], [address], 02/14/2024 08:24:57 02/13/20 24 02/14/2024 COMP. METAB OLIC PANEL (14) chloride 105 mmol/ L 96-106 Not Available [facility] [address] [place], [address], 02/14/2024 08:24:57 02/13/20 24 02/14/2024 COMP. METAB OLIC PANEL (14) carbon dioxide, total 27 mmol/ L 20- Not Available [facility] ([facility]) [address] [facility], [place], [address], 02/14/2024 08:24:57 02/13/20 24 02/14/2024 COMP. METAB OLIC PANEL (14) calcium 10.2 mg/dL 8.7-10 .3 Not Available [facility]) [address] [facility], [place], [address], 02/14/2024 08:24:57 02/13/20 24 02/14/2024 COMP. METAB OLIC PANEL (14) protein, total 7.3 g/dL 6.0-8. 5 Not Available [facility]) [address] [facility], [place], [address], 02/14/2024 08:24:57 02/13/20 24 02/14/2024 COMP. METAB OLIC PANEL (14) albumin 4.5 g/dL 3.9-4. 9 Not Available [facility]) [address] [facility] [place], [address], 02/14/2024 08:24:57 02/13/20 24 02/14/2024 COMP. METAB OLIC PANEL (14) globulin, total 2.8 g/dL 1.5-4. 5 Not Available [facility]) [address] [facility], [place], [address], 02/14/2024 08:24:57 02/13/20 24 02/14/2024 COMP. METAB OLIC PANEL (14) A/G ratio 1.6 1.2-2. 2 Not Available [facility] [address] [facility] [place], [address], 02/14/2024 08:24:57 02/13/20 24 02/14/2024 COMP. METAB OLIC PANEL (14) bilirubin, total 0.5 mg/dL 0.0-1. 2 Not Available [facility] [address] [place], [address], 02/14/2024 08:24:57 02/13/20 24 02/14/2024 COMP. METAB OLIC PANEL (14) alkaline phosphatase 79 IU/L 44-121 Not Available [facility] [address] [place], [address], 02/14/2024 08:24:57 02/13/20 24 02/14/2024 COMP. METAB OLIC PANEL (14) AST (SGOT) 19 IU/L 0-40 Not Available [facility] [address] [place], [address], 02/14/2024 08:24:57 02/13/20 24 02/14/2024 COMP. METAB OLIC PANEL (14) ALT (SGPT) 23 IU/L 0-32 Not Available [facility] [address] [place], [address], 02/14/2024 08:24:57 02/13/20 24 02/14/2024 HEMOG LOBIN A1C hemoglobin A1C 6.1 % 4.8-5. 6 above high normal Predi abete s: 5.7 - 6.4 Diabe sebas: >6.4 Glyce rhina contr ol for adult s with diabe sebas: <7.0 Not Available [facility]) [address] [place], [address], 02/14/2024 08:24:58 02/13/2002/14/2024 CBC WITH DIFFE RENTI AL/PL ATELE T WBC 5.7 x10e3 /uL 3.4-10 .8 Not Available [facility] [address] [place], [address], 02/14/2024 08:24:59 02/13/20 24 02/14/2024 CBC WITH DIFFE RENTI AL/PL ATELE T RBC 4.94 x10e6 /uL 3.77-5 .28 Not Available [facility] [address] [place], [address], 02/14/2024 08:24:59 02/13/20 24 02/14/2024 CBC WITH DIFFE RENTI AL/PL ATELE T hemoglobin 14.0 g/dL 11.1-1 5.9 Not Available [facility]) [address] [place], [address], 02/14/2024 08:24:59 02/13/2002/14/2024 CBC WITH DIFFE RENTI AL/PL ATELE T hematocrit 43.0 % 34.0-4 6.6 Not Available [facility] [address] [place], [address], 02/14/2024 08:24:59 02/13/20 24 02/14/2024 CBC WITH DIFFE RENTI AL/PL ATELE T MCV 87 fL 79-97 Not Available [facility] [address] [place], [address], 02/14/2024 08:24:59 02/13/2002/14/2024 CBC WITH DIFFE RENTI AL/PL ATELE T MCH 28.3 pg 26.6-3 3.0 Not Available [facility] [address] [place], [address], 02/14/2024 08:24:59 02/13/2002/14/2024 CBC WITH DIFFE RENTI AL/PL ATELE T MCHC 32.6 g/dL 31.5-3 5.7 Not Available [facility] [address] [place], [address], 02/14/2024 08:24:59 02/13/20 24 02/14/2024 CBC WITH DIFFE RENTI AL/PL ATELE T RDW 13.0 % 11.7-1 5.4 Not Available [facility]) [address] [facility], [place], [address], 02/14/2024 08:24:59 02/13/20 24 02/14/2024 CBC WITH DIFFE RENTI AL/PL ATELE T platelets 322 x10e3 /uL 150-45 0 Not Available [facility]) [address] [facility], [place], [address], 02/14/2024 08:24:59 02/13/20 24 02/14/2024 CBC WITH DIFFE RENTI AL/PL ATELE T neutrophils 49 % notest ab. Not Available [facility]) [address] [facility], [place], [address], 02/14/2024 08:24:59 02/13/20 24 02/14/2024 CBC WITH DIFFE RENTI AL/PL ATELE T lymphs 36 % notest ab. Not Available [facility]) [address] [facility], [place], [address], 02/14/2024 08:24:59 02/13/20 24 02/14/2024 CBC WITH DIFFE RENTI AL/PL ATELE T monocytes 7 % notest ab. Not Available [facility]) [address] [facility], [place], [address], 02/14/2024 08:24:59 02/13/20 24 02/14/2024 CBC WITH DIFFE RENTI AL/PL ATELE T eos 7 % notest ab. Not Available [facility]) [address] [facility], [place], [address], 02/14/2024 08:24:59 02/13/20 24 02/14/2024 CBC WITH DIFFE RENTI AL/PL ATELE T basos 1 % notest ab. Not Available [facility]) [address] [facility], [place], [address], 02/14/2024 08:24:59 02/13/20 24 02/14/2024 CBC WITH DIFFE RENTI AL/PL ATELE T neutrophils (absolute) 2.8 x10e3 /uL 1.4-7. 0 Not Available [facility]) [address] [facility], [place], [address], 02/14/2024 08:24:59 02/13/20 24 02/14/2024 CBC WITH DIFFE RENTI AL/PL ATELE T lymphs (absolute) 2.0 x10e3 /uL 0.7-3. 1 Not Available [facility]) [address] [facility], [place], [address], 02/14/2024 08:24:59 02/13/20 24 02/14/2024 CBC WITH DIFFE RENTI AL/PL ATELE T monocytes(ab solute) 0.4 x10e3 /uL 0.1-0. 9 Not Available [facility] [address] [facility], [place], [address], 02/14/2024 08:24:59 02/13/20 24 02/14/2024 CBC WITH DIFFE RENTI AL/PL ATELE T eos (absolute) 0.4 x10e3 /uL 0.0-0. 4 Not Available [facility]) [address] [facility], [place], [address], 02/14/2024 08:24:59 02/13/20 24 02/14/2024 CBC WITH DIFFE RENTI AL/PL ATELE T baso (absolute) 0.1 x10e3 /uL 0.0-0. 2 Not Available [facility] [address] [facility], [place], [address], 02/14/2024 08:24:59 02/13/20 24 02/14/2024 CBC WITH DIFFE RENTI AL/PL ATELE T immature granulocytes 0 % notest ab. Not Available [facility]) [address] [facility], [place], [address], 02/14/2024 08:24:59 02/13/20 24 02/14/2024 CBC WITH DIFFE RENTI AL/PL ATELE T immature grans (abs) 0.0 x10e3 /uL 0.0-0. 1 Not Available [facility]) [address] [facility], [place], [address], 02/14/2024 08:24:59 12/04/19 25 12/04/2024 ALBUM IN/CR EATIN INE RATIO ,URIN E creatinine, urine 110.9 mg/dL notest ab. Not Available [facility] [address] [facility], [place], [address], 12/04/2024 06:22:01 12/04/19 25 12/04/2024 ALBUM IN/CR EATIN INE RATIO ,URIN E albumin, urine 4.5 ug/mL notest ab. Not Available [facility] [address] [facility], [place], [address], 12/04/2024 06:22:01 12/04/19 25 12/04/2024 ALBUM IN/CR EATIN INE RATIO ,URIN E alb/creat ratio 4 mg/g_ creat 0-29 Lakshmi l: 0 - 29 Moder ately incre ased: 30 - 300 Sever samira incre ased: >300 Not Available [facility]) [address] [facility], [place], [address], 12/04/2024 06:22:01 12/04/19 25 12/04/2024 LIPID PANEL cholesterol, total 149 mg/dL 100-19 9 Not Available [facility] [address] [facility], [place], [address], 12/04/2024 06:22:02 12/04/19 25 12/04/2024 LIPID PANEL triglyceride s 143 mg/dL 0-149 Not Available [facility] [address] [place], [address], 12/04/2024 06:22:02 12/04/19 25 12/04/2024 LIPID PANEL HDL cholesterol 39 mg/dL >39 below low normal Not Available [facility] [address] [place], [address], 12/04/2024 06:22:02 12/04/19 25 12/04/2024 LIPID PANEL VLDL cholesterol rogelio 25 mg/dL 5-40 Not Available [facility] [address] [place], [address], 12/04/2024 06:22:02 12/04/19 25 12/04/2024 LIPID PANEL LDL chol calc ([facility]) 85 mg/dL 0-99 Not Available [facility] [address] [place], [address], 12/04/2024 06:22:02 12/04/19 25 12/04/2024 COMP. METAB OLIC PANEL (14) glucose 102 mg/dL 70-99 above high normal Not Available [facility] [address] [place], [address], 12/04/2024 06:22:04 12/04/19 25 12/04/2024 COMP. METAB OLIC PANEL (14) BUN 13 mg/dL 8-27 Not Available [facility] [address] [place], [address], 12/04/2024 06:22:04 12/04/19 25 12/04/2024 COMP. METAB OLIC PANEL (14) creatinine 1.09 mg/dL 0.57-1 .00 above high normal Not Available [facility]) [address] [place], [address], 12/04/2024 06:22:04 12/04/19 25 12/04/2024 COMP. METAB OLIC PANEL (14) eGFR 54 mL/mi n/1.7 3 >59 below low normal Not Available [facility]) [address], [place], [address], 12/04/2024 06:22:04 12/04/19 25 12/04/2024 COMP. METAB OLIC PANEL (14) BUN/creatini ne ratio 12 12-28 Not Available [facility] [address], [place], [address], 12/04/2024 06:22:04 12/04/19 25 12/04/2024 COMP. METAB OLIC PANEL (14) sodium 142 mmol/ L 134-14 4 Not Available [facility]) [address], [place], [address], 12/04/2024 06:22:04 12/04/19 25 12/04/2024 COMP. METAB OLIC PANEL (14) potassium 4.1 mmol/ L 3.5-5. 2 Not Available [facility] [address], [place], [address], 12/04/2024 06:22:04 12/04/19 25 12/04/2024 COMP. METAB OLIC PANEL (14) chloride 105 mmol/ L 96-106 Not Available [facility] [address], [place], [address], 12/04/2024 06:22:04 12/04/19 25 12/04/2024 COMP. METAB OLIC PANEL (14) carbon dioxide, total 23 mmol/ L 20-29 Not Available [facility] [address], [place], [address], 12/04/2024 06:22:04 12/04/19 25 12/04/2024 COMP. METAB OLIC PANEL (14) calcium 9.5 mg/dL 8.7-10 .3 Not Available [facility]) [address] [facility], [place], [address], 12/04/2024 06:22:04 12/04/19 25 12/04/2024 COMP. METAB OLIC PANEL (14) protein, total 7.3 g/dL 6.0-8. 5 Not Available [facility]) [address] [facility], [place], [address], 12/04/2024 06:22:04 12/04/19 25 12/04/2024 COMP. METAB OLIC PANEL (14) albumin 4.6 g/dL 3.8-4. 8 Not Available [facility]) [address] [facility], [place], [address], 12/04/2024 06:22:04 12/04/19 25 12/04/2024 COMP. METAB OLIC PANEL (14) globulin, total 2.7 g/dL 1.5-4. 5 Not Available [facility] [address] [facility], [place], [address], 12/04/2024 06:22:04 12/04/19 25 12/04/2024 COMP. METAB OLIC PANEL (14) bilirubin, total 0.7 mg/dL 0.0-1. 2 Not Available [facility]) [address] [facility], [place], [address], 12/04/2024 06:22:04 12/04/19 25 12/04/2024 COMP. METAB OLIC PANEL (14) alkaline phosphatase 81 IU/L 44-121 Not Available [facility] [address] [facility], [place], [address], 12/04/2024 06:22:04 12/04/19 25 12/04/2024 COMP. METAB OLIC PANEL (14) AST (SGOT) 19 IU/L 0-40 Not Available [facility]) [address] [facility], [place], [address], 12/04/2024 06:22:04 12/04/19 25 12/04/2024 COMP. METAB OLIC PANEL (14) ALT (SGPT) 21 IU/L 0-32 Not Available [facility]) [address] [facility], [place], [address], 12/04/2024 06:22:04 12/04/19 25 12/04/2024 HEMOG LOBIN A1C hemoglobin A1C 6.1 % 4.8-5. 6 above high normal Predi abete s: 5.7 - 6.4 Diabe sebas: >6.4 Glyce rhina contr ol for adult s with diabe sebas: <7.0 Not Available [facility]) [address] [facility], [place], [address], 12/04/2024 06:22:05 12/04/19 25 12/03/2024 CBC WITH DIFFE RENTI AL/PL ATELE T WBC 5.7 x10e3 /uL 3.4-10 .8 Not Available [facility] [address] [place], [address], 12/04/2024 06:22:06 12/04/19 25 12/03/2024 CBC WITH DIFFE RENTI AL/PL ATELE T RBC 4.72 x10e6 /uL 3.77-5 .28 Not Available [facility] [address] [place], [address], 12/04/2024 06:22:06 12/04/19 25 12/03/2024 CBC WITH DIFFE RENTI AL/PL ATELE T hemoglobin 13.8 g/dL 11.1-1 5.9 Not Available [facility]) [address] [place], [address], 12/04/2024 06:22:06 12/04/19 25 12/03/2024 CBC WITH DIFFE RENTI AL/PL ATELE T hematocrit 41.0 % 34.0-4 6.6 Not Available [facility]) [address] [facility], [place], [address], 12/04/2024 06:22:06 12/04/19 25 12/03/2024 CBC WITH DIFFE RENTI AL/PL ATELE T MCV 87 fL 79-97 Not Available [facility]) [address] [facility], [place], [address], 12/04/2024 06:22:06 12/04/19 25 12/03/2024 CBC WITH DIFFE RENTI AL/PL ATELE T MCH 29.2 pg 26.6-3 3.0 Not Available [facility]) [address] [facility], [place], [address], 12/04/2024 06:22:06 12/04/19 25 12/03/2024 CBC WITH DIFFE RENTI AL/PL ATELE T MCHC 33.7 g/dL 31.5-3 5.7 Not Available [facility]) [address] [facility], [place], [address], 12/04/2024 06:22:06 12/04/19 25 12/03/2024 CBC WITH DIFFE RENTI AL/PL ATELE T RDW 12.3 % 11.7-1 5.4 Not Available [facility] [address] [facility], [place], [address], 12/04/2024 06:22:06 12/04/19 25 12/03/2024 CBC WITH DIFFE RENTI AL/PL ATELE T platelets 332 x10e3 /uL 150-45 0 Not Available [facility]) [address] [facility], [place], [address], 12/04/2024 06:22:06 12/04/19 25 12/03/2024 CBC WITH DIFFE RENTI AL/PL ATELE T neutrophils 59 % notest ab. Not Available [facility]) [address] [facility], [place], [address], 12/04/2024 06:22:06 12/04/19 25 12/03/2024 CBC WITH DIFFE RENTI AL/PL ATELE T lymphs 29 % notest ab. Not Available [facility]) [address] [facility], [place], [address], 12/04/2024 06:22:06 12/04/19 25 12/03/2024 CBC WITH DIFFE RENTI AL/PL ATELE T monocytes 9 % notest ab. Not Available [facility]) [address] [facility], [place], [address], 12/04/2024 06:22:06 12/04/19 25 12/03/2024 CBC WITH DIFFE RENTI AL/PL ATELE T eos 2 % notest ab. Not Available [facility] [address] [facility], [place], [address], 12/04/2024 06:22:06 12/04/19 25 12/03/2024 CBC WITH DIFFE RENTI AL/PL ATELE T basos 1 % notest ab. Not Available [facility] [address] [facility], [place], [address], 12/04/2024 06:22:06 12/04/19 25 12/03/2024 CBC WITH DIFFE RENTI AL/PL ATELE T neutrophils (absolute) 3.4 x10e3 /uL 1.4-7. 0 Not Available [facility] [address] [facility], [place], [address], 12/04/2024 06:22:06 12/04/19 25 12/03/2024 CBC WITH DIFFE RENTI AL/PL ATELE T lymphs (absolute) 1.6 x10e3 /uL 0.7-3. 1 Not Available [facility] [address] [facility], [place], [address], 12/04/2024 06:22:06 12/04/19 25 12/03/2024 CBC WITH DIFFE RENTI AL/PL ATELE T monocytes(ab solute) 0.5 x10e3 /uL 0.1-0. 9 Not Available [facility] [address] [facility], [place], [address], 12/04/2024 06:22:06 12/04/19 25 12/03/2024 CBC WITH DIFFE RENTI AL/PL ATELE T eos (absolute) 0.1 x10e3 /uL 0.0-0. 4 Not Available [facility] [address] [facility], [place], [address], 12/04/2024 06:22:06 12/04/19 25 12/03/2024 CBC WITH DIFFE RENTI AL/PL ATELE T baso (absolute) 0.1 x10e3 /uL 0.0-0. 2 Not Available [facility]) [address] [place], [address], 12/04/2024 06:22:06 12/04/19 25 12/03/2024 CBC WITH DIFFE RENTI AL/PL ATELE T immature granulocytes 0 % notest ab. Not Available [facility] [address] [place], [address], 12/04/2024 06:22:06 12/04/19 25 12/03/2024 CBC WITH DIFFE RENTI AL/PL ATELE T immature grans (abs) 0.0 x10e3 /uL 0.0-0. 1 Not Available [facility] [address] [place], [address], 12/04/2024 06:22:06 12/17/19 25 12/16/2024 COLOG UARD cologuard result reportable POSITI VE negati ve abnormal POSIT YOVANY TEST RESUL T. A posit yovany Colog uard resul t shoul d be follo wed with a colon oscop y or visua l exami natio n of the colon . The lakshmi l value (refe rence range ) for this assay is negat yovany. TEST DESCR IPTIO N: [place] site algor ithmi c kenneth sis of stool DNA-b lorena viera with hemog lobin immun oassa y. Quant itati ve value s of indiv idual bioma rkers are not repor table and are not assoc iated with indiv idual bioma rker resul t refer ence range s. Colog uard is inten ded for color ectal cance r scree bishop of adult s of eithe r sex, 45 years or older , who are at [facility] for color ectal cance r (CRC) . Colog uard has been appro chadd for use by the [place] FDA. The perfo rmanc e of Colog uard was estab lishe d in a cross secti onal study of [facility] adult s aged 50-84 . Colog uard perfo rmanc e in patie nts ages 45 to 49 years was estim ated by sub-g roup kenneth sis of near- age group s. Colon oscop ies perfo rmed for a posit yovany resul t may find as the most clini debra signi ficdavid t lesio n: color ectal cance r [4.0% ], advan sushma adeno ma (incl uding sessi le lori dayton polyp s great er than or equal to 1cm diame ter) [20%] or non- advan sushma adeno ma [31%] ; or no color ectal neopl baldomero [45%] . These estim ates are deriv ed from a prosp ectiv e cross -sect ional scree bishop study of 10,00 0 indiv idual s at [facility] for color ectal cance r who were scree maye with both Colog uard and colon oscop y. (Impe riale T. et al, N Engl J Med 2014; 370(1 4):12 86-12 97.) Colog uard may produ ce a false negat yovany or false posit yovany resul t (no color ectal cance r or preca ncero us polyp prese nt at colon oscop y follo w up). A negat yovany Colog uard test resul t does not guara ntee the absen ce of CRC or advan sushma adeno ma (pre- cance r). The curre nt Colog uard scredomenica alas inter faith is every 3 years . (Amer ican Cance r Socie ty and U.S. Multi -Soci ety Task Force ). Colog uard perfo rmanc e data in a 10,00 0 patie nt pivot al study using colon oscop y as the refer ence metho d can be acces sed at the follo wing locat ion: www.e xactl abs.c om/re sults . Addit ional descr iptio n of the Colog uard test proce ss, warni ngs and preca ution s can be found at www.c ologu trav.c om. Not Available [facility] (Cologuard Orders Only) [address] [facility] [address], [place], [address], 12/21/2024 10:58:42 03/27/20 24 06/30/2023 MAMMO , marion alas, digit al, bilat eral No observ ation record ed. [id number] Not Available 14:12:28 12/04/19 25 12/03/2024 XR, ankle No observ ation record ed. alinaa [facility] [address], [place], [address], 12/06/2024 10:11:46 Result Notes None recorded. 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 Procedures Surgical History Date Name Laterality Status Provider Name and Address Organization Details Recorded Time Tonsillectomy completed Laurie Donnelly [place] [facility] 02/13/2024 11:12:16 Imaging Results Imaging Date Name Status LastModified by Organiz ation Details LastModified Time 06/30/2023 MAMMO, screening, digital, bilateral completed [id number] Information not available 03/27/2024 14:12:28 12/03/2024 XR, ankle completed vinicius [facility] [address] [address], [place], [address], 12/06/2024 10:11:46 Procedure Notes None recorded. Medical Equipment None Reported. Allergies Allergen ID Allergen Name Allergen Category Reaction Reaction Severity Criticality Documentation Date Start Date Code Code System Note Provider Name and Address Organization Details Recorded Time 201831 lisinopri l medicatio n Not available Not available Not available 02/13/2024 36448 RxNorm KAIN Cab[place], [place] - [facility] 4 11:07:27 251563 aspirin medicatio n Not available Not available Not available 02/13/2024 1191 RxNorm KAIN [place], [place] - [facility] 4 11:07:38 Medications Name Sig Start Date Stop Date Status Note LastModified by Organization Details LastModified Time atorvastatin 10 mg tablet TAKE 1 TABLET BY MOUTH DAILY 025 active Not Available Not Available Not Avai lable amlodipine 5 mg tablet TAKE 1 TABLET BY MOUTH DAILY 025 active Not Available Not Available Not Avai lable glimepiride 2 mg tablet TAKE 1 TABLET BY MOUTH DAILY 025 active Not Available Not Available Not Avai lable albuterol sulfate HFA 90 mcg/actuation aerosol inhaler INHALE 2 PUFFS BY MOUTH EVERY 4 HOURS active Not Available Not Available No t Available cranberry 500 mg capsule Take by oral route. active Not Available Not Available No t Available Calcium 600 + D(3) active Not Available Not Available Not Available PreserVision AREDS-2 active Not Available Not Available Not Available Centrum Adults active Not Available No t Available Not Available Vitals Date Recorded Body height Body mass index (BMI) Body weight Heart rate Oxygen saturation Oxygen saturation in Arterial blood by Pulse oximetry Systolic blood pressure Diastolic blood pressure Provider Name and Address Organization Details Last Updated DateTime 4 165.1 cm 28.1 kg/m2 16114.3 9 g 66 /min 99 % 99 % 124 mm[Hg] 72 mm[Hg] Laurie Donnelly MA [facility] 4 11:10:45 Date Recorded Body height Body mass index (BMI) Body weight Heart rate Oxygen saturation Oxygen saturation in Arterial blood by Pulse oximetry Systolic blood pressure Diastolic blood pressure Provider Name and Address Organization Details Last Updated DateTime 4 165.1 cm 27.9 kg/m2 08339.8 g 62 /min 100 % 100 % 110 mm[Hg] 72 mm[Hg] Marita Tavarez MA [facility] 4 10:17:53 Date Recorded Body height Body mass index (BMI) Body weight Heart rate Oxygen saturation Oxygen saturation in Arterial blood by Pulse oximetry Systolic blood pressure Diastolic blood pressure Provider Name and Address Organization Details Last Updated DateTime 5 165.1 cm 27.9 kg/m2 77182.8 g 69 /min 96 % 96 % 124 mm[Hg] 64 mm[Hg] Yen Mari MA [facility] 5 10:41:54 Social History Question Answer Notes LastModified by Organizat ion Details LastModified Time Tobacco Smoking Status Never Smoker Laurie Donnelly MA [facility], [place] - [facility] 02/13/2024 11:08:22 Do You Have An Advance Directive? No Information n ot available 08/13/2024 Are You Blind Or Do You Have Difficulty Seeing? Yes Information n ot available 02/13/2024 What Is Your Level Of Caffeine Consumption? Occasional Information not available 08/13/2024 In The 14 Days Before Symptom Onset, Have You Had Close Contact With A Laboratory-confirm ed COVID-19 While That Case Was Ill? No Information n ot available 08/13/2024 In The 14 Days Before Symptom Onset, Have You Had Close Contact With A Person Who Is Under Investigation For COVID-19 While That Person Was Ill? No Information not available 08/13/2024 Have You Been To An Area Known To Be High Risk For COVID-19? No Information not available 08/13/2024 Are You Deaf Or Do You Have Serious Difficulty Hearing? Yes Information not available 02/13/2024 What Type Of Diet Are You Following? REGULAR Information n ot available 08/13/2024 Are There Any Guns Present In Your Home? No Information not available 08/13/2024 What Was The Date Of Your Most Recent Tobacco Screening? 12/03/2024 Information not available 12/03/2024 What Is Your Relationship Status? Single Information not available 02/13/2024 Do You Use Your Seat Belt Or Car Seat Routinely? Yes Information not available 02/13/2024 Do You Have Smoke And Carbon Monoxide Detectors In Your Home? Yes Information not available 08/13/2024 Do You Use Sunscreen Routinely? No Information not available 08/13/2024 Has Tobacco Cessation Counseling Been Provided? Yes Information not available 12/03/2024 On What Date Was Tobacco Cessation Counseling Provided? 12/03/2024 Information not available 12/03/2024 Sex: Female Functional Status Question Answer Note LastModified by Organizat ion Details LastModified Time Do you use any illicit or recreational drugs? No Information not available 12/03/2024 Do you or have you ever used any other forms of tobacco or nicotine? No Information not available 12/03/2024 What is your level of alcohol consumption? None Information not available 02/13/2024 Are you able to care for yourself? Yes Information not available 02/13/2024 Mental Status Question Answer Note LastModified by Organization D etails LastModified Time Do you feel stressed (tense, restless, nervous, or anxious, or unable to sleep at night)? CD7626-0 Information not available 02/13/2024 Family History Relationship Description Onset Age of this Age Resolved Age Notes LastModified by Organization Details LastModified Time Mother Asthma apaytonma Not available 02/13/2024 11:10:57 Mother Diabetes mellitus apaytonma Not available 2023 11:11:11 Mother Hypertensive disorder apaytonma Not available 2023 11:11:29 Mother Migraine apaytonma Not availabl e 02/13/2024 11:11:43 Brother Diabetes mellitus apaytonma Not available 2023 11:11:11 Brother Hypertensive disorder apaytonma Not available 2023 11:11:29 Brother Hypercholest erolemia apaytonma Not available 2023 11:11:38 Father Diabetes mellitus apaytonma Not available 2023 11:11:11 Father Hypertensive disorder apaytonma Not available 2023 11:11:29 Father Hypercholest erolemia apaytonma Not available 2023 11:11:38 Sister Diabetes mellitus apaytonma Not available 2023 11:11:11 Sister Disorder of thyroid gland apaytonma Not available 2023 11:11:17 Sister Hypertensive disorder apaytonma Not available 2023 11:11:29 Sister Hypercholest erolemia apaytonma Not available 2023 11:11:38 Medical History Condition Response High Blood Pressure Y Stroke Y Asthma Y Allergies Y High Cholesterol Y Diabetes Y Gynecological HistoryNo gynecological history recorded. Obstetrics History GPAL:G 0 P 0 0 0 0 Immunizations Vaccine Type Date Status Note Provider Nam e and Address Organization Details Recorded Time SARS-COV-2 (COVID-19) vaccine, UNSPECIFIED 2 completed KAIN [place], [place] [facility] 12/03/2024 09:23:32 SARS-COV-2 (COVID-19) vaccine, UNSPECIFIED 1 [place]AIN [place] [facility] 12/03/2024 09:23:32 SARS-COV-2 (COVID-19) vaccine, UNSPECIFIED 1 [place]AIN [place] [facility] 12/03/2024 09:23:32 SARS-COV-2 (COVID-19) vaccine, UNSPECIFIED 1 [place]AIN [place] [facility] 12/03/2024 09:23:32 zoster live 4 [place]AIN [place] [facility] 12/03/2024 09:23:32 pneumococcal polysaccharide PPV23 4 [place]AIN [place] [facility] 12/03/2024 09:23:32 Pneumococcal conjugate PCV 13 5 [place]AIN [place] [facility] 12/03/2024 09:23:32 influenza, unspecified formulation 1 [place]AIN [place] [facility] 12/03/2024 09:23:32 tetanus toxoid, adsorbed 9 completed [place] [facility] 03/27/2024 14:27:07 Influenza, split virus, quadrivalent, preservative 7 completed KAIN [place] [facility] 12/03/2024 09:23:32 Influenza, high-dose, quadrivalent, PF 0 [place]AIN [place] [facility] 12/03/2024 09:23:32 Influenza, high-dose, quadrivalent, PF 1 [place]AIN [place] [facility] 12/03/2024 09:23:32 Influenza, high-dose, quadrivalent, PF 2 completed Marita Tavarez [place] [facility] 12/03/2024 09:23:32 Influenza, high-dose, quadrivalent, PF 3 completed Marita Tavarez [place] [facility] 12/03/2024 09:23:32 COVID-19, mRNA, LNP-S, PF, 100 mcg/0.5mL dose or 50 mcg/0.25mL dose 1 completed Marita Tavarez KAIN [place] [facility] 12/03/2024 09:23:32 COVID-19, mRNA, LNP-S, PF, 100 mcg/0.5mL dose or 50 mcg/0.25mL dose 1 completed Marita Tavarez [place] jesus, [place] [facility] 12/03/2024 09:23:32 COVID-19, mRNA, LNP-S, PF, 100 mcg/0.5mL dose or 50 mcg/0.25mL dose 1 completed Marita Tavarez KAIN [place] [facility] 12/03/2024 09:23:32 COVID-19, mRNA, LNP-S, PF, 100 mcg/0.5mL dose or 50 mcg/0.25mL dose 2 completed Marita Tavarez KAIN [place] [facility] 12/03/2024 09:23:32 COVID-19, mRNA, LNP-S, PF, 100 mcg/0.5mL dose or 50 mcg/0.25mL dose 1 completed Marita Tavarez [place] [facility] 12/03/2024 09:23:32 COVID-19, mRNA, LNP-S, bivalent, PF, 30 mcg/0.3 mL dose 2 completed KAIN [place] [facility] 12/03/2024 09:23:32 RSV, recombinant, protein subunit RSVpreF, adjuvant reconstituted, 0.5 mL, PF 4 completed KAIN [place] [facility] 12/03/2024 09:23:32 COVID-19, mRNA, LNP-S, PF, 50 mcg/0.5 mL 3 completed Maritajr Tavarez, [place] [facility] 12/03/2024 09:23:32 zoster live 4 completed Marita Tavarez, [place] [facility] 12/03/2024 09:23:33 influenza, [id number] 4 completed Marita Tavarez, [place] [facility] 12/03/2024 09:23:33 influenza, [id number] 5 completed Marita Tavarez, [place] [facility] 12/03/2024 09:23:33 Influenza, high-dose, trivalent, PF 8 completed Marita Tavarez [place] [facility] 12/03/2024 09:23:33 Influenza, high-dose, trivalent, PF 4 completed Marita Tavarez [place] [facility] 12/03/2024 09:23:33 Pneumococcal conjugate PCV20, polysaccharide [id number] conjugate, adjuvant, PF 4 completed Ermias Lees MD Attn: Accounting,[address] [place], [address], [place] [facility] 08/17/2024 21:32:00 Past Encounters Encounter ID Performer Location Encounter Start Date Encounter Closed Date Diagnosis/Indication Diagnosis SNOMED-CT Code Diagnosis ICD10 Code Diagnosis Note [id number] Ermias Lees MD 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 ([facility]) [address] [place] [phone] 0 12/03/2024 10:13:56 12/03/2024 11:18:03 Body mass index 25-29 - overweight 420357805 Z68.27 Type 2 jan betes mellitus 11884037 E11.9 Asthma 653715049 J45.90 9 Hyperlipidemia 21149663 E78.5 Cavernous hemangioma of brain 839687789 D18.02 Essential hypertension 49646345 I10 Pain of le ft ankle joint 0928279058 9181768 M25.572 Screening for malignant neoplasm of colon 259063745 Z12.11 Health Concerns Section Related Observation LastModified by Organization Detai ls LastModified Time None Recorded Concern Status LastModified by Organization Details LastModified Time None Recorded Advance Directives Directive N: Payers Encounter Date Sequence Insurance Name Policy Number Policy Rabago Covered Member ID Rabago Member ID Guarantor Name 02/13/2024 1 [facility] (MEDICARE REPLACEMENT/A DVANTAGE - HMO) [id number] Laskhmi Affolter [id number] Lakshmi Affolter 08/13/2024 1 [facility] (MEDICARE REPLACEMENT/A DVANTAGE - HMO) [id number] Lakshmi Affolter [id number] Lakshmi Affolter 12/03/2024 1 [facility] (MEDICARE REPLACEMENT/A DVANTAGE - HMO) [id number] Lakshmi Affolter [id number] Lakshmi Affolter Notes Date Note Type Note Provider Name and Address Organization Details Recorded Time 02/13/2024 text/html Follow-up of med ical problems diabetes no polyphagia polydipsia or hypoglycemia. Hypertension no headache or blurred vision. Hyperlipidemia take her atorvastatin without any side effects. Asthma mild history of intracranial cavernous hemangioma and has been stable she has seen neurology and they have told her there is nothing more to do at this time she does use a cane Ermias Lees MD Attn: Accounting, [address] [facility], [place], [address], [facility] 03/09/2024 16:09:39 08/13/2024 text/html asthma stable li ttle use of albuterol. Cavernous hemangioma brain no neurological symptoms that are new. Diabetes no polyphagia polydipsia no hypoglycemia. Hypertension no headache or dizziness. . Hyperlipidemia could do better with diet no side effects from medications Ermias Lees MD Attn: Accounting, [address] [facility], [place], [address], [facility] 08/17/2024 21:34:52 12/03/2024 text/html diabetes needs t o be checked but she has been doing fine symptomatically she does need A1c though. Hypertension no headache or dizziness blood pressure controlled dyslipidemia she could do better with diet she was taking her atorvastatin cavernous hemangioma brain has been no stroke stroke-like symptoms no headache or blurred vision problems. The patient does have left foot pain for a couple of days Ermias Lees MD Attn: Accounting, [address] [facility], [place], [address], [facility] 12/07/2024 15:54:41 OBGyn Episode No OBEpisode recorded.
[2025-02-10 12:01] VITALS: BP 152/66; PULSE 58; RESP 18; TEMP 36.4; O2SAT 100; BMI 27.5
[2025-02-10] MEDS: LACTATED RINGERS 1,000 ML 150 ML IV CONT (12:13)
--- NOTE | 2025-02-10 12:25 | P.PNAN_ITS ---
Anes - Initial Pre Proc Eval Procedure: Operation Date: 02/10/25 13:00 Proposed Procedures p Colonoscopy - Brent Carrillo MD Date/Time: 02/10/25 12:25 Surgeon: Brent Carrillo MD Pre Op Diagnosis: Other fecal abnormalities Patient Data Age: 69 Gender: F Height: 1.65 m Weight: 75 kg Last Vital Signs Temp 36.4 C L 02/10/25 12:01 Pulse 58 L 02/10/25 12:01 Resp 18 02/10/25 12:01 BP 152/66 H 02/10/25 12:01 Pulse Ox 100 02/10/25 12:01 O2 Del Method Room Air 02/10/25 12:01 Allergies Allergy/AdvReac Type Severity Reaction Status Date / Time aspirin Allergy Mild doctor Verified 02/10/25 11:59 instructed not to take lisinopril Allergy Mild LIP & EAR Verified 02/10/25 11:59 SWELLING Home Medications ?Medication ?Instructions ?Recorded ?Confirmed ?Type amlodipine 5 mg tablet 5 mg PO DAILY 01/28/25 02/10/25 History atorvastatin 10 mg tablet 10 mg PO DAILY 01/28/25 02/10/25 History glimepiride 2 mg tablet 2 mg PO DAILY 01/28/25 02/10/25 History Patient hx anesthesia problems: none Family hx anesthesia problems: none Results Review: All pre-operative results and documents have been reviewed as part of the pre- operative evaluation. [facility] Past Medical History Medical History (Updated 02/10/25 @ 12:25 by Ministerio Duffy MD) Asthma Diabetes Hyperlipidemia HTN (hypertension) Social History Social History Smoking status: Never smoker Alcohol intake: never Substance use: never Substance use type: does not use Living arrangements: alone Spiritual care concerns: No Anes - Eval Final PreProcedure Day of Procedure 02/10/25 12:25 Patient weight: overweight Heart: regular rate and rhythm Lungs: clear to auscultation Airway: Mallampati scale class II Neurological: alert and oriented Last oral intake: >/= 8 hours ASA classification: III Emergent: no Anesthetic plan: proceed Anesthesia type and monitoring: general GIVS and standard monitoring Results Review: All pre-operative results and documents have been reviewed as part of the pre- operative evaluation. Informed Consent: The patient's anesthetic plan and its attendant risks and benefits were discussed with the patient/family/POA. Questions were solicited and answers provided to the satisfaction of the patient/family/POA.
--- NOTE | 2025-02-10 12:50 | PM.HPGS ---
History of Present Illness History of Present Illness Consent: Risks, benefits, and alternatives have been discussed and questions answered. Patient agrees to proceed with procedure. Chief complaint: Other fecal abnormalities Narrative: Lakshmi Segundo is a 69 year old female with + cologuard, last colonoscopy 10 years ago Review of Systems Review of Systems: All systems reviewed & are unremarkable except as noted in HPI and below PMFSH Past Medical History Medical History (Updated 02/10/25 @ 12:51 by Brent Carrillo MD) Positive colorectal cancer screening using Cologuard test Asthma Diabetes Hyperlipidemia HTN (hypertension) Social History Social History Smoking status: Never smoker Alcohol intake: never Substance use: never Substance use type: does not use Living arrangements: alone Spiritual care concerns: No Meds Home Medications and Allergies Home Medications ?Medication ?Instructions ?Recorded ?Confirmed ?Type amlodipine 5 mg tablet 5 mg PO DAILY 01/28/25 02/10/25 History atorvastatin 10 mg tablet 10 mg PO DAILY 01/28/25 02/10/25 History glimepiride 2 mg tablet 2 mg PO DAILY 01/28/25 02/10/25 History Allergies Allergy/AdvReac Type Severity Reaction Status Date / Time aspirin Allergy Mild doctor Verified 02/10/25 11:59 instructed not to take lisinopril Allergy Mild LIP & EAR Verified 02/10/25 11:59 SWELLING Vital Signs Vital Signs - 24 hr 02/10/25 12:01 Temperature 97.5 F L Pulse Rate 58 L Respiratory Rate 18 Blood Pressure 152/66 H Pulse Oximetry 100 Oxygen Delivery Room Air Exam Const: General: comfortable and no acute distress HENMT: Face/Nose/Sinus: Normal nares present Eyes: General: appearance normal, both eyes and all related structures Neck: Neck: no JVD Resp: Auscultation: clear to auscultation bilaterally Cardio: Rate: regular rate Rhythm: regular rhythm GI: Inspection: non-distended GI Palp: Yes Soft to palpation Skin: General skin exam: normal color Neuro: General: gait normal Speech: normal speech Extrem: General: normal to inspection Psych: Mental Status: mental status grossly normal Assessment and Plan Assessment and plan (1) Positive colorectal cancer screening using Cologuard test: Code(s): R19.5 - Other fecal abnormalities Status: Acute Assessment and Plan: colonoscopy
[2025-02-10 12:52] LABS: Glucose Point of Care 96 mg/dl (65-105)
[2025-02-10 13:24] VITALS: BP 118/63; PULSE 76; RESP 25; O2SAT 99
[2025-02-10 13:34] VITALS: BP 132/70; PULSE 58; RESP 20; O2SAT 98
[2025-02-10 13:44] VITALS: BP 127/69; PULSE 59; RESP 20; O2SAT 98
== END 2025-02-10 13:50 | disposition home or self-care (01) ==
PROVIDERS: PCP Internal Medicine; Referring Provider Internal Medicine; Visit Provider Internal Medicine Gastroenterology
PROC: 0DJD8ZZ Inspection of Lower Intestinal Tract, Via Natural or Artificial Opening Endoscopic (ICD-10-PCS; CPT 45378; principal; 2025-02-10 13:00)
DX: R19.5 Other fecal abnormalities (principal); D12.0 Benign neoplasm of cecum; K64.8 Other hemorrhoids; E11.9 Type 2 diabetes mellitus without complications
CPT/HCPCS: 45385; 82948; 88305; J2003; J2704; J7120

== ENCOUNTER 2025-02-20 11:08 | Outpatient (CLI) | payer MEDICARE, SELFPAY ==
--- NOTE | ~2025-02-20 | MM_ITS ---
EXAMINATION: MM screening efrain BI w christine HISTORY: Screening TECHNIQUE: Craniocaudal and mediolateral oblique 3-D tomosynthesis images were obtained and synthetic 2-D images were generated. CAD analysis was submitted and interpreted. COMPARISON: No prior mammogram is available for comparison at this institution. BREAST PARENCHYMAL COMPOSITION: Dense: The breasts are heterogeneously dense, which may obscure small masses FINDINGS: There is no evidence of suspicious mass, calcification, or architectural distortion to sugg est malignancy in either breast. There has been no suspicious interval change. IMPRESSION: 1. No mammographic evidence of malignancy. 2. Recommend routine screening mammography in one year. BI-RADS Category 2: Benign finding(s). Reviewed, dictated and finalized at location B.
== END 2025-02-20 11:09 | disposition home or self-care (01) ==
PROVIDERS: PCP Internal Medicine; Visit Provider Internal Medicine
DX: Z12.31 Encounter for screening mammogram for malignant neoplasm of breast (principal)
CPT/HCPCS: 77063; 77067